=== PATIENT | female | born 1950 | race Caucasian/White ===

== ENCOUNTER 2022-09-25 15:36 | Outpatient (RCR) | payer MEDICARE, SELFPAY ==
--- NOTE | 2022-09-25 16:33 | PT.OPEX ---
PT [place] [facility] Eval PT [facility] Out[facility] Eval Start: 09/25/22 15:44 Freq: Status: Active Protocol: Document 09/25/22 15:44 DARIEL (Rec: 09/25/22 15:58 YEAGERV [id number]) E-signed By Daisha Howard Physical Therapy Outpatient Evaluation Insurance Information Recert Due Date 12/25/22 Insurance Name Medicare [employer] Medical Diagnosis M16.11 OA of R hip Z96.641 RTHA Treating Diagnosis M25.551 Pain in R hip M25.651 Stiffness in R hip Referring MD Siva Muñoz Subjective Subjective Pt presents pre-op only for RTHA on 10/17/[address] Muñoz. Pt reports that she has been in a lot of pain with functional activities such as getting in/out of the car. She states that nothing helps her pain. She does take Gabapentin at night which does help her sleep. This is her first joint replacement. Pt will be doing PT in [place] . Pt lives who can assist. Live in multi-level home, daughter and family live upstairs. No steps to enter. Has a chair lift upstairs. Pt has hx of L shoulder problems, is seeing PT currently for this issue. Pain Comments -01/01 Date of Last Physician Visit 09/28/22 Date of Next Physician Visit 10/26/22 Date of Surgery (If applicable) 10/17/22 Current Work Status Retired Occupation Retired Precautions Treatment Precautions/Contraindications PMHx: OA. Weight Bearing Status Weight Bear as Tolerated Therapy Limitations/Systems Review Not Limited Objective Range of Motion L shoulder flexion = 0-90 L ER = 22 L IR = 25 R ER = 22 R IR = 26 L hip flexion = 91 R hip flexion = 84 Strength L shoulder flexion = 4-/5 All other UE WNLs B hip flexion = 4/5 B hip abd = 4/5 B hip add = 5/5 B quads = 4/5 B hamstrings = 4+/5 B dorsiflexors = 4/5 Swelling Pt reports inc B knee swelling in the morning that reduces throughout the day. Balance & Gait No AD use. Mod trunk sway during gait. Assessment Assessment/Impression Pt is a 72yo F presenting pre- op only for RTHA on 10/17/[address] Muñoz. PMHx: OA. Pt reports that she has been experiencing R hip pain for the past 6 mon that has inc with all functional activities , especially getting in/out of the car. Pt demonstrates dec B hip strength and ROM. Pt also has dec L shoulder ROM and strength as well as pain with WB on LUE. She is currently seeing PT for her shoulder. Pt was educated on HEP, POC, post-op precautions, cryotherapy, stair negotiation, equipment needs, and pain management strategies . Pt will be receiving OP PT in [place] after sx. Primary Functional Limitations Pain with functional activities Dec B hip strength and ROM Gait deficits Plan of Care Rehabilitation Potential Good Physical Therapy Goals In one session: 1. Pt will be IND with URIEL HEP in order to perform IND at home post-op. 2. Pt will provide verbal understanding of stair negotiation with step to gait pattern in order IND enter/ exit home post-op. Coordination/Communication With Referral Source Treatment Plan/Direct Interventions Gait Training,Self-Care/Home Management,Therapeutic Exercises Patient Will Be Discharged From Therapy Completion of LTG(s),Skills Plateau,Independent w/HEP, Independently Progressing Discharge Plan Comments Pt will be d/c today as she is receiving PT post-op in [place] Evaluation Billing Untimed Code Treatment Minutes 15 PT Eval No Charge No Complexity Moderate Certification Information Initial Certification Date 09/25/22 Ending Certification Date 12/25/22 Provider Signature Shows Agreement With POC & Medical Necessity Physician Comment/Change : Physician NPI Number #
== END 2023-01-11 23:59 | disposition home or self-care (01) ==
PROVIDERS: PCP Family Medicine; Visit Provider Orthopaedic Surgery
DX: M16.11 Unilateral primary osteoarthritis, right hip (principal); Z96.641 Presence of right artificial hip joint; M25.551 Pain in right hip; M25.651 Stiffness of right hip, not elsewhere classified; Z51.89 Encounter for other specified aftercare
CPT/HCPCS: 97110; 97162; 97535

== ENCOUNTER 2022-10-15 09:04 | Outpatient (CLI) | payer MEDICARE, SELFPAY | END 2022-10-15 09:05 | disposition home or self-care (01) | PROVIDERS: PCP Family Medicine; Visit Provider Orthopaedic Surgery | DX: Z01.818 Encounter for other preprocedural examination (principal) | CPT/HCPCS: 36415; 86850; 86900; 86901 ==

== ENCOUNTER 2022-10-17 08:09 | Day surgery (SDC) | payer MEDICARE, SELFPAY ==
[2022-10-17] VITALS (27 sets, daily range): BP systolic 113–141; BP diastolic 45–88; PULSE 46–61; RESP 16–18; TEMP 35.6–36.3; O2SAT 93–100; BMI 31.6
[2022-10-17] MEDS: CELECOXIB 200 MG CAPSULE PO (08:25)
[2022-10-17] MEDS: LACTATED RINGERS 1000 ML 1,000 ML 100 ML IV ×2 (08:25→11:29)
[2022-10-17] MEDS: OXYCODONE (CR) 10 MG TAB.ER.12H PO (08:25)
[2022-10-17] MEDS: SODIUM CHLORIDE 0.9 % (FLUSH) 10 ML SYRINGE IVF (08:44)
[2022-10-17] MEDS: ACETAMINOPHEN 500 MG TABLET 1000 MG PO ×3 (08:46→23:39)
--- NOTE | 2022-10-17 10:00 | CRLHL7_ITS ---
For Patients: As a result of the Century Cures Act, medical imaging exams and procedure reports are released immediately into your electronic medical record. You may view this report before your referring provider. If you have questions, please contact your health care provider. INDICATION: Right hip arthroplasty. TECHNIQUE: Fluoroscopically guided intraoperative evaluation of the right hip. FINDINGS: 57.3 seconds fluoroscopy time utilized. Right hip arthroplasty. The components are adequately aligned. IMPRESSION: 57.3 seconds fluoroscopy time utilized intraoperatively. Dictated by Alex Delgado MD @ 10/17/2022 3:44:17 PM (Electronically Signed)
[2022-10-17] MEDS: MIDAZOLAM HCL 1 MG/ML inj IVP (10:16)
[2022-10-17] MEDS: CEFAZOLIN 2 GM INJ IVP (10:30)
--- NOTE | 2022-10-17 10:48 | SUR.PREOP ---
TIME?OUT:?1015 PT/RN/MDA?VERIFICATION?OF?SURGICAL?SITE Right Hip,?PROCEDURE nerve block,?AND?CONSENT OBTAINED?PRIOR?TO?INVASIVE?PROCEDURE.
[2022-10-17] MEDS: TRANEXAMIC ACID 100 MG/ML INJ 1000 MG IV (11:30)
--- NOTE | 2022-10-17 11:45 | P.NB_ITS ---
Nerve Block Nerve Block Time Seen by Provider: 10:20 Date Seen: 10/17/22 Type of block requested by surgeon for post-operative analgesia: GIANCARLO/LFCN Side: right Time out performed: Yes Verification of patient name: Yes Verification of date of : Yes Site marking: site marked Name of person performing procedure: [place] Continuous monitoring Was continuous monitoring of O2 sat, B/P, alarm security or surveillance monitor, recorded every 15 minutes?: Yes Procedure Checklist: sterile prep, needles and gloves Ultrasound guided. Images saved: Yes Medications given in 5ml increments after negative aspiration: Ropivicaine %: 0.5 mL: 30 Needle gauge: 20 Decadron (mg): 10 Precedex (mcg): 25 Patient tolerated procedure well: Yes Additional comments: Needle noted below psoas tendon needle noted adjacent to LFCN Block Charges Block Charge (with Pro Fee): Other Periph Nerve Block Use of Ultrasound Machine for Block: Yes- US Guidance/pain block
--- NOTE | 2022-10-17 11:46 | W.ANESCHARGE ---
Anesthesia Charges Start Date/Time Anesthesia Start Date: 10/17/22 Anesthesia Start Time: 10:25 Stop Date/Time Anesthesia Stop Date: 10/17/22 Anesthesia Stop Time: 12:56 Summary Extremes of Age - Over 70 or under 1: MDA
--- NOTE | 2022-10-17 11:56 | CRLHL7_ITS ---
For Patients: As a result of the Cures Act, medical imaging exams and procedure reports are released immediately into your electronic medical record. You may view this report before your referring provider. If you have questions, please contact your health care provider. INDICATION: Follow up right hip arthroplasty. TECHNIQUE: AP pelvis and single lateral view of the low right hip. FINDINGS: Right hip arthroplasty. The components are adequately aligned and well seated. Degenerative change of the left hip. IMPRESSION: Right hip arthroplasty. The components are adequately aligned and well seated. Dictated by Alex Delgado MD @ 10/17/2022 3:45:14 PM (Electronically Signed)
--- NOTE | 2022-10-17 11:58 | P.ORPRC_ITS ---
Procedure Note Date of procedure: 10/17/22 Procedure: PREOPERATIVE DIAGNOSIS: Right hip osteoarthritis POSTOPERATIVE DIAGNOSIS: Right hip osteoarthritis NAME OF OPERATION: Right total hip arthroplasty SURGEON: Siva Muñoz MD ALTERNATIVE ENERGY ENGINEER: Domenica Jameson PA-C, ASPEN Cid IMPLANTS: 1. [employer] [place] # 50 sector ingrowth cup 2. 32 x 50 neutral polyethylene 3. Actis # 3 standard collared ingrowth stem 4. 32+ 1.0 ceramic femoral head ANESTHESIA: General ESTIMATED BLOOD LOSS: 200 cc COMPLICATIONS: None SPECIMENS: None DRAINS: None PREOPERATIVE ANTIBIOTICS: Ancef 2 grams INDICATIONS: The patient is a 72-year-old with a longstanding history of severe, unrelenting right hip pain secondary to end-stage right hip osteoarthritis. Despite appropriate nonoperative management, including activity modification, use of an assist device, anti-inflammatories, [id number]-[id number] pain medication, physical therapy and injections, they continue to have pain and disability. Operative intervention was offered. The risks, benefits and expected outcomes were discussed in detail. These included but were not limited to: Infection, bleeding, injury to blood vessel or nerve, venous thromboembolism. All questions were answered to their satisfaction. Use of an assistant professor of music was necessary throughout the case for patient positioning and safety, soft tissue retraction and closure. PROCEDURE: The patient was placed supine on the [place] table. General anesthesia was administered. The assistant professor of music made sure the patient was properly positioned. The right hip was prepped and draped in the usual sterile fashion. The image intensifier was brought in for a perfect AP pelvis and a perfect double tear drop AP view of each hip which were used for intraoperative templating with our fluoroscopic guide. An oblique incision was made 3 cm distal and 3 cm lateral to the anterior superior iliac spine. The assistant professor of music retracted the soft tissues to protect them. Subcutaneous dissection was taken with electrocautery to the superficial fascia. The fascia was divided in line with the incision. Blunt dissection was carried medially to the tensor fascia enriqueta and sartorius interval. Deep dissection was carried with electrocautery. The circumflex vessels were cauterized and divided. The capsule was exposed and then divided in a T- fashion, tagged with #1 Ethibond sutures. Retractors were placed in the joint, held by the assistant professor of music. The corkscrew was placed in the femoral head. The neck cut was made in the subcapital region. We made a second neck cut more distal. The napkin ring of bone was removed. The femoral head was removed intact. Acetabular retractors were placed, held by the assistant professor of music. The labrum was sharply debrided. The capsule was released. The 43 mm reamer was used to the true medial wall. We then enlarged in 2 mm increments using the image intensifier for our reamer placement. We impacted the cup which had excellent purchase. We placed the hole eliminator and the polyethylene. Attention was then turned to the proximal femur. The limb was placed in 140 degrees of external rotation, maximum extension and adduction. A significant amount of time was spent releasing the capsule to allow us to deliver the femur into the wound and complete the femoral side safely. Retractors were held by the assistant professor of music throughout the femoral preparation. The boxing machine operator and canal finder were used. Broaches were used to a stable size. The calcar reamer was used. Trial components were placed. The hip was reduced and was found to be stable with appropriate soft tissue tension. Length and offset had been nicely restored using the image intensifier and our fluoroscopic guide. Trial components were removed. The stem was impacted. We placed the femoral head. Again, the hip was reduced and was found to be stable with appropriate soft tissue tension. Length and offset had been nicely restored. The assistant professor of music did a three minute dilute Betadine solution soak. The assistant professor of music irrigated the wound with 3 liters of normal saline via pulse lavage. The as sistant repaired the anterior capsule with a #1 Vicryl and our previously placed Ethibond sutures. The assistant professor of music closed the fascia over the tensor fascia enriqueta with a #1 PDO Stratafix, subcutaneous tissues with 2-0 Vicryl, skin with a running 3-0 Stratafix and glue. A dry dressing was applied by the assistant professor of music. Sponge and needle counts were correct x 2. The patient tolerated the procedure well; there were no apparent complications. They were awakened and extubated in the operating room, sent to the Post-Anesthesia Care Unit in satisfactory condition. PLAN: 1. The patient will be mobilized with physical therapy, weight-bearing as tolerates 2. Xarelto x 5 days then aspirin x 30 days will be used for DVT prophylaxis 3. The patient will be discharged once medically appropriate
--- NOTE | 2022-10-17 12:56 | W.ANESCHARGE ---
Anesthesia Charges Start Date/Time Anesthesia Start Date: 10/17/22 Anesthesia Start Time: 10:25 Stop Date/Time Anesthesia Stop Date: 10/17/22 Anesthesia Stop Time: 12:56
[2022-10-17] MEDS: fentaNYL 100 MCG/2 ML inj IVP (13:30)
[2022-10-17] MEDS: ONDANSETRON 2 MG/ML inj 4 MG IVP ×2 (14:01→19:50)
--- NOTE | 2022-10-17 14:08 | REH.PT ---
PT Eval held as pt was not appropriate for therapy this PM. Will eval tomorrow morning.
[2022-10-17] MEDS: LACTATED RINGERS 1000 ML 1,000 ML 75 ML IV (14:35)
[2022-10-17] MEDS: OXYCODONE 5 MG TABLET PO (15:50)
[2022-10-17] MEDS: CEFAZOLIN 1 GM in 0.9 % SODIUM CHLORIDE Mini-bag 100 ML IVPB (16:58)
--- NOTE | 2022-10-17 19:40 | PC.NURSE ---
Pt. up to floor at 1347, Pt. at bedside, VSS. Pt. on 2L NC at sating at 95-100%. Pt. c/o Nausea and PRN zofran PRN administered. see eMAR. Casper teds, plexi pulses and active ice to op site. Dressing to right hip is C/D/I. Pt. rated pain 5/10 and PRN oxy 2.5mg administered w/relief. Pt. up to commode and voided 200CC at 1800. IV patent and SL. Pt. tolerating reg diet.
[2022-10-17] MEDS: PROCHLORPERAZINE 10 MG TABLET PO (22:02)
[2022-10-17] MEDS: SENNOSIDES 1 TAB TABLET 2 TAB PO (23:40)
--- NOTE | 2022-10-18 00:12 | PM.IMCN1 ---
Date of Consult Patient: G[place] Patient Consult date: 10/17/22 Requesting Physician: Orthopedics Primary Care Provider: Sarina Nj, Consult Narrative Reason for consult: Postop care of HTN and chronic kidney disease Narrative: Alina Groves is a 72 year old woman who presents for an elective right total hip arthroplasty due to advanced, severe osteoarthritis. This is undertaken successfully today. No complications. Doing well. Review of Systems Status of ROS: Reports: 6 or more systems reviewed and unremarkable except as noted in History and below Narrative: Denies chest heaviness, pressure, tightness, or pain. Denies syncope or near-syncope. Denies nausea or vomiting. Denies palpitations. Denies cough, shortness of breath. Denies edema. Denies claudication. [facility] Medical History (Updated 10/18/22 @ 00:16 by Srinivasa Blackburn MD) Anemia due to chronic kidney disease ?N18.9 - Chronic kidney disease, unspecified (ICD-10) ?D63.1 - Anemia in chronic kidney disease (ICD-10) Back pain ?M54.9 - Dorsalgia, unspecified (ICD-10) Chronic kidney disease, stage 4 (severe) ?N18.4 - Chronic kidney disease, stage 4 (severe) (ICD-10) Chronic nephritic syndrome, minor glomerular abnormality (~2019) ?N03.0 - Chronic nephritic syndrome with minor glomerular abnormality (ICD-10) Essential hypertension ?I10 - Essential (primary) hypertension (ICD-10) GERD (gastroesophageal reflux disease) ?K21.9 - Gastro-esophageal reflux disease without esophagitis (ICD-10) 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 ?N02.2 - Recurrent and persistent hematuria with diffuse membranous glomerulonephritis (ICD-10) Surgical History H/O eye surgery ?Z98.890 - Other specified postprocedural states (ICD-10) Hx of tonsillectomy ?Z90.89 - Acquired absence of other organs (ICD-10) Family History Other Diabetes Prostate cancer Social History Smoking Status: Never smoker Do you use any of these nicotine containing products: None How often do you have a drink containing alcohol: never AUDIT-C Alcohol total score: 0 Non-prescribed substance use: denies use Caffeine: Yes (coffee, 2-3 cups/week) Meds Home Medications and Allergies Home Medications Medication Instructions Recorded Confirmed Type calcium carbonate 600 mg calcium 600 mg PO DAILY 08/28/22 10/17/22 History (1,500 mg) tablet (Calcium) carvedilol 6.25 mg tablet 6.25 mg PO BID 08/28/22 10/17/22 History cetirizine 10 mg tablet (Zyrtec) 10 mg PO DAILY PRN 08/28/22 10/17/22 History gabapentin 300 mg capsule 300 mg PO HS 08/28/22 10/17/22 History hydrochlorothiazide 25 mg tablet 25 mg PO DAILY 08/28/22 10/17/22 History lisinopril 20 mg tablet 20 mg PO BID 08/28/22 10/17/22 History simvastatin 20 mg tablet 20 mg PO HS 08/28/22 10/17/22 History Allergies Allergy/AdvReac Type Severity Reaction Status Date / Time No Known Drug Allergies Allergy Verified 10/17/22 08:29 Exam Narrative: Exam Narrative: Appears comfortable and in no acute distress. Alert, oriented to self, place, time, situation. Friendly, articulate, cooperative. Insightful. Mood and affect are congruent. Vision and hearing are grossly normal. Neck is supple. Midline trachea. Lungs are clear to auscultation. Heart tones with regular rhythm. Abdomen with active bowel sounds, soft, nontender. No focal motor neurologic deficits. Already moving her lower extremities. Const: Vital Signs, click to edit/add: Vital Signs - 24 hr 10/17/22 08:35 10/17/22 10:15 10/17/22 10:17 Temperature 97.4 F L Pulse Rate 61 58 L 60 Pulse Rate [Right Pulse Oximeter] Respiratory Rate 16 16 16 Blood Pressure 123/49 L 130/54 L 130/56 L Blood Pressure [Le ft Arm] Pulse Oximetry 98 98 98 Oxygen Delivery Me thod Room Air Nasal Cannula Room Air Oxygen Flow Rate 2 2 10/17/22 10:20 10/17/22 12:51 10/17/22 12:55 Temperature 96.4 F L Pulse Rate 59 L 59 L 61 Pulse Rate [Right Pulse Oximeter] Respiratory Rate 16 16 16 Blood Pressure 125/54 L 119/64 114/74 Blood Pressure [Le ft Arm] Pulse Oximetry 98 97 98 Oxygen Delivery Me thod Nasal Cannula OxyMask OxyMask Oxygen Flow Rate 2 6 6 10/17/22 13:00 10/17/22 13:05 10/17/22 13:10 Temperature 96.6 F L Pulse Rate 57 L 60 59 L Pulse Rate [Right Pulse Oximeter] Respiratory Rate 16 16 16 Blood Pressure 123/61 135/61 126/49 L Blood Pressure [Le ft Arm] Pulse Oximetry 98 97 99 Oxygen Delivery Me thod OxyMask OxyMask OxyMask Oxygen Flow Rate 6 6 6 10/17/22 13:25 10/17/22 13:15 10/17/22 13:20 Temperature 96.8 F L Pulse Rate 53 L 59 L 59 L Pulse Rate [Right Pulse Oximeter] Respiratory Rate 16 16 16 Blood Pressure 123/58 L 122/57 L 126/50 L Blood Pressure [Le ft Arm] Pulse Oximetry 94 97 94 Oxygen Delivery Me thod Nasal Cannula Nasal Cannula Nasal Cannula Oxygen Flow Rate 4 4 2 10/17/22 12:25 10/17/22 13:35 10/17/22 13:40 Temperature Pulse Rate 54 L 50 L 54 L Pulse Rate [Right Pulse Oximeter] Respiratory Rate 16 16 16 Blood Pressure 122/46 L 113/45 L 117/54 L Blood Pressure [Le ft Arm] Pulse Oximetry 96 94 97 Oxygen Delivery Me thod Nasal Cannula Nasal Cannula Nasal Cannula Oxygen Flow Rate 2 4 4 10/17/22 13:48 10/17/22 13:47 10/17/22 15:00 Temperature 96.0 F L 96.0 F L Pulse Rate 54 L Pulse Rate [Right Pulse Oximeter] 53 L 54 L Respiratory Rate 16 16 16 Blood Pressure Blood Pressure [Le ft Arm] 140/64 H 140/64 H Pulse Oximetry 100 Oxygen Delivery Me thod Nasal Cannula Nasal Cannula Oxygen Flow Rate 3 3 10/17/22 14:00 10/17/22 14:15 10/17/22 14:30 Temperature 96.0 F L 96.0 F L 96.7 F L Pulse Rate Pulse Rate [Right Pulse Oximeter] 46 L 51 L 50 L Respiratory Rate 16 16 16 Blood Pressure Blood Pressure [Le ft Arm] 134/58 L 141/62 H 134/56 L Pulse Oximetry 100 98 99 Oxygen Delivery Me thod Nasal Cannula Nasal Cannula Nasal Cannula Oxygen Flow Rate 3 2 2 10/17/22 14:45 10/17/22 15:00 10/17/22 15:30 Temperature 96.8 F L 96.8 F L 96.8 F L Pulse Rate Pulse Rate [Right Pulse Oximeter] 52 L 52 L 53 L Respiratory Rate 16 16 16 Blood Pressure Blood Pressure [Le ft Arm] 114/88 122/46 L 126/53 L Pulse Oximetry 98 99 98 Oxygen Delivery Me thod Nasal Cannula Nasal Cannula Nasal Cannula Oxygen Flow Rate 2 2 2 10/17/22 17:00 10/17/22 18:00 Temperature 96.9 F L 96.8 F L Pulse Rate Pulse Rate [Right Pulse Oximeter] 52 L 60 Respiratory Rate 16 16 Blood Pressure Blood Pressure [Le ft Arm] 125/59 L 132/58 L Pulse Oximetry 99 96 Oxygen Delivery Me thod Nasal Cannula Nasal Cannula Oxygen Flow Rate 2 2 Assessment and Plan Assessment and plan (1) Osteoarthritis of right hip: Status: Chronic (2) Status post right hip replacement: Status: Acute (3) Essential hypertension: Status: Acute (4) Chronic kidney disease, stage 4 (severe): Problem comment: Creatinine 2.06 on 10/04/2022. Creatinine 2.35 on 08/15/2022. 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 Has been off of the steroids for the last 3-4 months due to improve kidney function. Status: Acute Plan 1. Reviewed impression with patient. 2. Resume her medications. 3. Will follow patient while she is here in the hospital. 4. From a medical perspective anticipate she will likely be able to be discharged on postop day 1 as planned.
[2022-10-18] MEDS: CEFAZOLIN 1 GM in 0.9 % SODIUM CHLORIDE Mini-bag 100 ML IVPB ×2 (01:21→10:38)
[2022-10-18 04:00] VITALS: BP 114/47; PULSE 64; RESP 16; TEMP 36.4; O2SAT 95
--- NOTE | 2022-10-18 06:15 | PC.NURSE ---
[id number] Shift Summary? 262 M.M. 72 R URIEL? Pt?s pain managed well overnight. Given Tylenol (nausea related to narcotics) for pain and ice pack in place. Nausea persisted with Zofran so Compazine was ordered and given with relief. Can have it again any time. Up to BR x2. No BM overnight but passing gas. Tolerated jello and jefferson gina. On room air sating mid/low 90s. AO1 with walker to BR. Possible DC today home with . IV SLed?and 2/3 IV abx given.
[2022-10-18] MEDS: ACETAMINOPHEN 500 MG TABLET 1000 MG PO (06:36)
[2022-10-18 07:00] VITALS: BP 117/49; PULSE 67; RESP 12; TEMP 36.4; O2SAT 99
[2022-10-18 07:32] LABS: Hematocrit 27.4 % (33.0-51.0); Hemoglobin* 8.8 gm/dL (12.0-16.0); Immature Granulocytes Pct Auto 0.2 %; Lymphocytes Percent Auto 9.2 % (20-44); Mean Corpuscular HGB Conc 32 gm/dL (32-36); Mean Corpuscular Hemoglobin 29 pg (26-34); Mean Corpuscular Volume 89 fL (80-100); Monocytes Percent Auto 4.9 % (0.0-11.0); Neutrophils Percent Auto 85.7 % (42.0-72.0); Platelet Count* 281 K/uL (140-440); RDW Coefficient of Variation % 12.1 % (11.5-15.5); Red Blood Count 3.08 m/uL (4.00-5.20); White Blood Count* 13.55 K/uL (4.50-11.00)
[2022-10-18 07:35] LABS: Slide Review Reflex No
[2022-10-18 07:52] LABS: Sodium* 136 mmol/L (135-149)
[2022-10-18 07:55] LABS: Creatinine* 2.9 mg/dL (0.5-1.5); Est. Creatinine Clearance* 12.84; Estimated Glomerular Filt Rate 16 ml/min
[2022-10-18 07:56] LABS: Blood Urea Nitrogen* 56 mg/dL (7-30)
--- NOTE | 2022-10-18 08:17 | PM.ORPN ---
Subjective Subjective Time Seen by Provider: 07:10 Date Seen: 10/18/22 Principal diagnosis: Status post right hip replacement 10/17/2022 Interval history: Alina is comfortable this morning. She states she got good rest last night. Her nausea has improved. Ortho Exam Narrative Exam Narrative: Alert and oriented x3. Patient is in no acute distress. Converses without labored breathing. Hearing is grossly intact. Ambulates with a walker. Examination of the right hip shows the dressing is intact. No erythema or warmth or sign of infection. Very mild soft tissue edema about the right hip. CMS is intact right lower extremity. Quad strength 5/5. Bilateral calves are soft and nontender. Const Vital Signs, click to edit/add: Vital Signs - 24 hr 10/17/22 08:35 10/17/22 10:15 10/17/22 10:17 Temperature 97.4 F L Pulse Rate 61 58 L 60 Pulse Rate [Right Pulse Oximeter] Respiratory Rate 16 16 16 Blood Pressure 123/49 L 130/54 L 130/56 L Blood Pressure [Left Arm] Pulse Oximetry 98 98 98 Oxygen Delivery Method Room Air Nasal Cannula Room Air Oxygen Flow Rate 2 2 10/17/22 10:20 10/17/22 12:51 10/17/22 12:55 Temperature 96.4 F L Pulse Rate 59 L 59 L 61 Pulse Rate [Right Pulse Oximeter] Respiratory Rate 16 16 16 Blood Pressure 125/54 L 119/64 114/74 Blood Pressure [Left Arm] Pulse Oximetry 98 97 98 Oxygen Delivery Method Nasal Cannula OxyMask OxyMask Oxygen Flow Rate 2 6 6 10/17/22 13:00 10/17/22 13:05 10/17/22 13:10 Temperature 96.6 F L Pulse Rate 57 L 60 59 L Pulse Rate [Right Pulse Oximeter] Respiratory Rate 16 16 16 Blood Pressure 123/61 135/61 126/49 L Blood Pressure [Left Arm] Pulse Oximetry 98 97 99 Oxygen Delivery Method OxyMask OxyMask OxyMask Oxygen Flow Rate 6 6 6 10/17/22 13:25 10/17/22 13:15 10/17/22 13:20 Temperature 96.8 F L Pulse Rate 53 L 59 L 59 L Pulse Rate [Right Pulse Oximeter] Respiratory Rate 16 16 16 Blood Pressure 123/58 L 122/57 L 126/50 L Blood Pressure [Left Arm] Pulse Oximetry 94 97 94 Oxygen Delivery Method Nasal Cannula Nasal Cannula Nasal Cannula Oxygen Flow Rate 4 4 2 10/17/22 12:25 10/17/22 13:35 10/17/22 13:40 Temperature Pulse Rate 54 L 50 L 54 L Pulse Rate [Right Pulse Oximeter] Respiratory Rate 16 16 16 Blood Pressure 122/46 L 113/45 L 117/54 L Blood Pressure [Left Arm] Pulse Oximetry 96 94 97 Oxygen Delivery Method Nasal Cannula Nasal Cannula Nasal Cannula Oxygen Flow Rate 2 4 4 10/17/22 13:48 10/17/22 13:47 10/17/22 15:00 Temperature 96.0 F L 96.0 F L Pulse Rate 54 L Pulse Rate [Right Pulse Oximeter] 53 L 54 L Respiratory Rate 16 16 16 Blood Pressure Blood Pressure [Left Arm] 140/64 H 140/64 H Pulse Oximetry 100 Oxygen Delivery Method Nasal Cannula Nasal Cannula Oxygen Flow Rate 3 3 10/17/22 14:00 10/17/22 14:15 10/17/22 14:30 Temperature 96.0 F L 96.0 F L 96.7 F L Pulse Rate Pulse Rate [Right Pulse Oximeter] 46 L 51 L 50 L Respiratory Rate 16 16 16 Blood Pressure Blood Pressure [Left Arm] 134/58 L 141/62 H 134/56 L Pulse Oximetry 100 98 99 Oxygen Delivery Method Nasal Cannula Nasal Cannula Nasal Cannula Oxygen Flow Rate 3 2 2 10/17/22 14:45 10/17/22 15:00 10/17/22 15:30 Temperature 96.8 F L 96.8 F L 96.8 F L Pulse Rate Pulse Rate [Right Pulse Oximeter] 52 L 52 L 53 L Respiratory Rate 16 16 16 Blood Pressure Blood Pressure [Left Arm] 114/88 122/46 L 126/53 L Pulse Oximetry 98 99 98 Oxygen Delivery Method Nasal Cannula Nasal Cannula Nasal Cannula Oxygen Flow Rate 2 2 2 10/17/22 17:00 10/17/22 18:00 10/17/22 19:00 Temperature 96.9 F L 96.8 F L Pulse Rate Pulse Rate [Right Pulse Oximeter] 52 L 60 Respiratory Rate 16 16 18 Blood Pressure Blood Pressure [Left Arm] 125/59 L 132/58 L Pulse Oximetry 99 96 Oxygen Delivery Method Nasal Cannula Nasal Cannula Room Air Oxygen Flow Rate 2 2 10/17/22 23:00 10/17/22 23:00 10/18/22 04:00 Temperature 97.4 F L 97.6 F Pulse Rate Pulse Rate [Right Pulse Oximeter] 60 60 64 Respiratory Rate 18 16 Blood Pressure Blood Pressure [Left Arm] 124/60 114/47 L Pulse Oximetry 93 95 Oxygen Delivery Method Room Air Room Air Oxygen Flow Rate Assessment and Plan Assessment and plan (1) Status post right hip replacement: Problem details: 10/17/2022, Dr. Muñoz Status: Acute Assessment and Plan: Plan for discharge is today to home if she meets discharge criteria. Her hemoglobin is 8.8. She is asymptomatic at rest. BUN and creatinine are elevated. DVT prophylaxis includes Xarelto 10 mg daily for total of 5 days, then aspirin 81 mg twice daily for 30 days, [place] stockings x1 month may remove for 1 hr per day, frequent ambulation Remove dressing 1 week. Observe wound and phone Orthopedics with any questions or concerns Use Ice on operative hip unrestricted. Return to clinic in 1 week with PA for a wound check Return to clinic in [address] Muñoz Minimize narcotic use. Wean off and discontinue soon as possible. Activities as tolerated. No strenuous activity. Attend outpt PT (2) Essential hypertension: Status: Acute (3) Chronic kidney disease, stage 4 (severe): Problem details: Creatinine 2.06 on 10/04/2022. Creatinine 2.35 on 08/15/2022. 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 Has been off of the steroids for the last 3-4 months due to improve kidney function. Status: Acute
[2022-10-18] MEDS: lisinopriL 20 MG TABLET PO (09:30)
[2022-10-18] MEDS: RIVAROXABAN 10 MG TABLET PO (09:30)
[2022-10-18] MEDS: hydroCHLOROthiazide 25 MG TABLET PO (09:30)
[2022-10-18] MEDS: SENNOSIDES 1 TAB TABLET 2 TAB PO (09:30)
[2022-10-18] MEDS: carvediloL 6.25 MG TABLET PO (09:30)
[2022-10-18 10:36] VITALS: TEMP 37
[2022-10-18 11:00] VITALS: BP 100/69; PULSE 60; RESP 12; TEMP 36.5; O2SAT 96
--- NOTE | 2022-10-18 13:11 | PC.NURSE ---
Patient alert and oriented x 4, on RA, vss, SBA, regular diet tolerating well, no N/V, fluid intake and output WNL. PIV removed prior to d/c, d/c instructions reviewed and given to patient. Patient discharged by wheelchair with to home
== END 2022-10-18 12:30 | disposition home or self-care (01) ==
LOC: OR 08:11 → MEDSURG 08:13
PROVIDERS: PCP Family Medicine; Visit Provider Orthopaedic Surgery
PROC: (CPT 27130; principal; 2022-10-17 10:00)
DX: M16.11 Unilateral primary osteoarthritis, right hip (principal); I12.9 Hypertensive chronic kidney disease with stage 1 through stage 4 chronic kidney disease, or unspecified chronic kidney disease; N18.4 Chronic kidney disease, stage 4 (severe); K21.9 Gastro-esophageal reflux disease without esophagitis; D63.1 Anemia in chronic kidney disease; Z79.52 Long term (current) use of systemic steroids; G89.18 Other acute postprocedural pain
CPT/HCPCS: 27130; 1214; 36415; 64450; 73501; 76000; 76942; 82565; 84132; 84295; 84520; 85025; 97110; 97116; 97162; 97165; 97535; 99100; A9270; C1776; J0330; J0690; J1100; J1170; J2250; J2405; J2704; J2710; J2795; J3010; J7120

== ENCOUNTER 2023-05-01 10:23 | Outpatient (CLI) | payer MEDICARE, SELFPAY | END 2023-05-01 10:24 | disposition home or self-care (01) | LOC: LAB 10:25 | PROVIDERS: PCP Family Medicine; Visit Provider Orthopaedic Surgery | DX: Z01.818 Encounter for other preprocedural examination (principal) | CPT/HCPCS: 36415; 86850; 86900; 86901 ==

== ENCOUNTER 2023-05-03 07:15 | Day surgery (SDC) | payer MEDICARE, SELFPAY ==
[2023-05-03] VITALS (35 sets, daily range): BP systolic 109–156; BP diastolic 51–118; PULSE 50–69; RESP 8–22; TEMP 35.7–36.8; O2SAT 1–100; BMI 27.9
[2023-05-03] MEDS: OXYCODONE (CR) 10 MG TAB.ER.12H PO (07:30)
[2023-05-03] MEDS: ACETAMINOPHEN 500 MG TABLET 1000 MG PO ×3 (07:30→20:40)
[2023-05-03] MEDS: SODIUM CHLORIDE 0.9 % (FLUSH) 10 ML SYRINGE IVF (07:40)
[2023-05-03] MEDS: LACTATED RINGERS 1000 ML 1,000 ML 100 ML IV ×2 (07:40→08:43)
[2023-05-03] MEDS: MIDAZOLAM HCL 1 MG/ML inj IVP (08:00)
[2023-05-03] MEDS: fentaNYL 100 MCG/2 ML inj IVP (08:00)
--- NOTE | 2023-05-03 08:10 | SUR.PREOP ---
TIME?OUT:?0800 PT/Joel RALPH RN/Mell MCGREGOR MDA?VERIFICATION?OF?SURGICAL?SITE,?PROCEDURE,?AND?CONSENT OBTAINED?PRIOR?TO?INVASIVE?PROCEDURE.
[2023-05-03] MEDS: TRANEXAMIC ACID 100 MG/ML INJ 1000 MG IV (08:42)
[2023-05-03] MEDS: CEFAZOLIN 2 GM INJ IVP (08:42)
--- NOTE | 2023-05-03 09:00 | CRLHL7_ITS ---
For Patients: As a result of the Cures Act, medical imaging exams and procedure reports are released immediately into your electronic medical record. You may view this report before your referring provider. If you have questions, please contact your health care provider. Indication: Hip replacement surgery Technique: AP hip fluoroscopic images. Fluoroscopy time 81.3 seconds. Findings/Impression: Hardware from a left total hip arthroplasty is in satisfactory position. Dictated by Adam Hoff MD @ 05/03/2023 10:26:24 AM (Electronically Signed)
--- NOTE | 2023-05-03 09:35 | P.NB_ITS ---
Nerve Block Nerve Block Time Seen by Provider: 08:04 Date Seen: 05/03/23 Type of block requested by surgeon for post-operative analgesia: GIANCARLO/LFCN Side: left Time out performed: Yes Verification of patient name: Yes Verification of date of : Yes Site marking: site marked Name of person performing procedure: [place] Continuous monitoring Was continuous monitoring of O2 sat, B/P, awake overnight monitor, recorded every 15 minutes?: Yes Procedure Checklist: sterile prep, needles and gloves Ultrasound guided. Images saved: Yes Medications given in 5ml increments after negative aspiration: Ropivicaine %: 0.5 mL: 30 Needle gauge: 20 Decadron (mg): 10 Precedex (mcg): 25 Patient tolerated procedure well: Yes Additional comments: Needle noted below psoas tendon needle noted adjacent to LFCN Block Charges Block Charge (with Pro Fee): Other Periph Nerve Block Use of Ultrasound Machine for Block: Yes- US Guidance/pain block
--- NOTE | 2023-05-03 09:36 | W.ANESCHARGE ---
Anesthesia Charges Start Date/Time Anesthesia Start Date: 05/03/23 Anesthesia Start Time: 08:26 Stop Date/Time Anesthesia Stop Date: 05/03/23 Anesthesia Stop Time: 11:02 Summary Extremes of Age - Over 70 or under 1: MDA
--- NOTE | 2023-05-03 10:07 | CRLHL7_ITS ---
For Patients: As a result of the Cures Act, medical imaging exams and procedure reports are released immediately into your electronic medical record. You may view this report before your referring provider. If you have questions, please contact your health care provider. Indication: post op URIEL Technique: AP hip centered pelvis and lateral view left hip Findings/Impression: Hardware from a left total hip arthroplasty is in satisfactory position. Bone alignment is normal. No sign of acute fracture. Postop changes are within normal limits. Dictated by Adam Hoff MD @ 05/03/2023 12:13:25 PM (Electronically Signed)
--- NOTE | 2023-05-03 10:09 | PM.ORPRC ---
Procedure Note Date of procedure: 05/03/23 Procedure: PREOPERATIVE DIAGNOSIS: Left hip osteoarthritis POSTOPERATIVE DIAGNOSIS: Left hip osteoarthritis NAME OF OPERATION: Left total hip arthroplasty SURGEON: Siva Muñoz MD SWAGE TOOLSETTER: Domenica Jameson PA-C, ASPEN Cid IMPLANTS: 1. [employer] [place] # 50 sector ingrowth cup 2. 32 x 50 +0 neutral polyethylene 3. Actis # 3 standard collared ingrowth stem 4. 32 + 9 ceramic femoral head ANESTHESIA: General ESTIMATED BLOOD LOSS: 500 cc COMPLICATIONS: None SPECIMENS: None DRAINS: None PREOPERATIVE ANTIBIOTICS: Ancef 1 g INDICATIONS: The patient is a 73-year-old with a longstanding history of severe, unrelenting left hip pain secondary to end-stage left hip osteoarthritis. Despite appropriate nonoperative management, including activity modification, use of an assist device, anti-inflammatories, [id number] pain medication, physical therapy and injections, they continue to have pain and disability. Operative intervention was offered. The risks, benefits and expected outcomes were discussed in detail. These included but were not limited to: Infection, bleeding, injury to blood vessel or nerve, venous thromboembolism. All questions were answered to their satisfaction. Use of an speech language pathology assistant was necessary throughout the case for patient positioning and safety, soft tissue retraction and closure. PROCEDURE: The patient was placed supine on the [place] table. General anesthesia was administered. The speech language pathology assistant made sure the patient was properly positioned. The left hip was prepped and draped in the usual sterile fashion. The image intensifier was brought in for a perfect AP pelvis and a perfect double tear drop AP view of each hip which were used for intraoperative templating with our fluoroscopic guide. An oblique incision was made 3 cm distal and 3 cm lateral to the anterior superior iliac spine. The speech language pathology assistant retracted the soft tissues to protect them. Subcutaneous dissection was taken with electrocautery to the superficial fascia. The fascia was divided in line with the incision. Blunt dissection was carried medially to the tensor fascia enriqueta and sartorius interval. Deep dissection was carried with electrocautery. The circumflex vessels were cauterized and divided. The capsule was exposed and then divided in a T-fashion, tagged with #1 Ethibond sutures. Retractors were placed in the joint, held by the speech language pathology assistant. The corkscrew was placed in the femoral head. The neck cut was made in the subcapital region. We made a second neck cut more distal. The napkin ring of bone was removed. The femoral head was removed intact. Acetabular retractors were placed, held by the speech language pathology assistant. The labrum was sharply debrided. The capsule was released. The 43 mm reamer was used to the true medial wall. We then enlarged in 2 mm increments using the image intensifier for our reamer placement. We impacted the cup which had excellent purchase. We placed the hole eliminator and the polyethylene. Attention was then turned to the proximal femur. The limb was placed in 140 degrees of external rotation, maximum extension and adduction. A significant amount of time was spent releasing the capsule to allow us to deliver the femur into the wound and complete the femoral side safely. Retractors were held by the speech language pathology assistant throughout the femoral preparation. The gill box operator and canal finder were used. Broaches were used to a stable size. The calcar reamer was used. Trial components were placed. The hip was reduced and was found to be stable with appropriate soft tissue tension. Length and offset had been nicely restored using the image intensifier and our fluoroscopic guide. Trial components were removed. The stem was impacted. We placed the femoral head. Again, the hip was reduced and was found to be stable with appropriate soft tissue tension. Length and offset had been nicely restored. The speech language pathology assistant did a three minute dilute Betadine solution soak. The speech language pathology assistant irrigated the wound with 3 liters of normal saline via pulse lavage. The speech language pathology assistant repaired the anterior capsule with a #1 Vicryl and our previously placed Ethibond sutures. The speech language pathology assistant closed the fascia over the tensor fascia enriqueta with a #1 PDO Stratafix, subcutaneous tissues with 2-0 Vicryl, skin with a running 3-0 Stratafix and glue. A dry dressing was applied by the speech language pathology assistant. Sponge and needle counts were correct x 2. The patient tolerated the procedure well; there were no apparent complications. They were awakened and extubated in the operating room, sent to the Post-Anesthesia Care Unit in satisfactory condition. PLAN: 1. The patient will be mobilized with physical therapy, weight-bearing as tolerates 2. Xarelto x 5 days then aspirin x 30 days will be used for DVT prophylaxis 3. The patient will be discharged once medically appropriate
--- NOTE | 2023-05-03 11:06 | W.ANESCHARGE ---
Anesthesia Charges Start Date/Time Anesthesia Start Date: 05/03/23 Anesthesia Start Time: 08:26 Stop Date/Time Anesthesia Stop Date: 05/03/23 Anesthesia Stop Time: 11:02
[2023-05-03] MEDS: fentaNYL 100 MCG/2 ML inj 50 MCG IVP (11:24)
[2023-05-03] MEDS: HYDROmorphone 0.5 mg/0.5 ml inj IVP (11:30)
[2023-05-03] MEDS: OXYCODONE 5 MG TABLET PO ×2 (13:44→16:14)
--- NOTE | 2023-05-03 14:03 | REH.PT ---
PT Shahnaz held as pt was not appropriate for therapy this PM due to pain control issues. Will shahnaz tomorrow morning.
--- NOTE | 2023-05-03 14:47 | P.IMCN_ITS ---
Date of Consult Patient: G[place] Patient Consult date: 05/03/23 Requesting Physician: Orthopedics Primary Care Provider: Sarina Nj, Consult Narrative Narrative: Alina Groves is a 73 year old female admitted to the hospital for left total hip arthroplasty. Procedures performed by Dr. Muñoz. No complications. Estimated blood loss of 500 mL. Postoperatively patient reports doing well. She has no concerns today. No recent health problems except for persistent fatigue. She attributes this to anemia though her hemoglobin was 10.2 2 weeks ago. On April 24 she had a molar extracted from her right mandible. She did take and amoxicillin for 1 week after that and finished at 3 days ago. She is having no pain or other problems associated with that dental extraction. September 2022 she underwent right hip arthroplasty. The procedure was uncomplicated and she went home afterwards. Again had concern about anemia at that time and did receive some intravenous iron in November for her anemia. She has membranous glomerulonephritis and is followed by Dr. Judie Butler, mushroom farmer. Previously was treated with cyclosporin and prednisone. He has treatments were discontinued March of 2022 and she has been stable since then. Her baseline creatinine has been around 2.1. On April 20, 2023 her creatinine was 2.3 and her potassium was 5.2. Postoperatively she has been hypoxic. No history of respiratory disease. She reports no shortness of breath. 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 ?N02.2 - Recurrent and persistent hematuria with diffuse membranous glomerulonephritis (ICD-10) Essential hypertension ?I10 - Essential (primary) hypertension (ICD-10) Chronic kidney disease, stage 4 (severe) ?N18.4 - Chronic kidney disease, stage 4 (severe) (ICD-10) Chronic nephritic syndrome, minor glomerular abnormality (~2019) ?N03.0 - Chronic nephritic syndrome with minor glomerular abnormality (ICD- 10) Back pain ?M54.9 - Dorsalgia, unspecified (ICD-10) GERD (gastroesophageal reflux disease) ?K21.9 - Gastro-esophageal reflux disease without esophagitis (ICD-10) Surgical History (Updated 05/03/23 @ 15:00 by Kevyn Dwyer MD) History of total left hip arthroplasty ?Z96.642 - Presence of left artificial hip joint (ICD-10) Status post right hip replacement (10/17/22) ?Z96.641 - Presence of right artificial hip joint (ICD-10) Hx of tonsillectomy ?Z90.89 - Acquired absence of other organs (ICD-10) H/O eye surgery ?Z98.890 - Other specified postprocedural states (ICD-10) Family History Other Diabetes Prostate cancer Social History (Updated 05/03/23 @ 15:02 by Kevyn Dwyer MD) Narrative: Patient was living in [place] and this summer moved to [place]. She lives in apartment there. She has elevators. She lives alone. Her son is going to come and stay with her for a week after surgery. She has a daughter who lives nearby. Her son, Rylan Mcknight, is healthcare power of claim attorney. Code status is full. She does not smoke or drink alcohol. Smoking Status: Current every day smoker Do you use any of these nicotine containing products: None How often do you have a drink containing alcohol: never AUDIT-C Alcohol total score: 0 Non-prescribed substance use: denies use Caffeine: No Meds Home Medications and Allergies Home Medications Medication Instructions Recorded Confirmed Type calcium carbonate 600 mg calcium 600 mg PO DAILY 08/28/22 05/03/23 History (1,500 mg) tablet (Calcium) carvedilol 6.25 mg tablet 6.25 mg PO BID 08/28/22 05/03/23 History cetirizine 10 mg tablet (Zyrtec) 10 mg PO DAILY PRN 08/28/22 05/03/23 History gabapentin 300 mg capsule 300 mg PO HS 08/28/22 05/03/23 History hydrochlorothiazide 25 mg tablet 25 mg PO DAILY 08/28/22 05/03/23 History lisinopril 20 mg tablet 20 mg PO BID 08/28/22 05/03/23 History simvastatin 20 mg tablet 20 mg PO HS 08/28/22 05/03/23 History famotidine 20 mg tablet (Acid 20 mg PO BID PRN 05/03/23 05/03/23 History Controller) Allergies Allergy/AdvReac Type Severity Reaction Status Date / Time No Known Drug Allergies Allergy Verified 05/03/23 07:28 Exam Narrative: Exam Narrative: She is alert and appears in no distress. She gives her own history. Eyes normal. Oropharynx normal. The site of her dental extraction without inflammation. Neck is supple without mass or adenopathy. Respirations are clear to auscultation. Cardiovascular: S1, S2, regular bradycardia. Abdomen: Bowel sounds active. Abdomen is soft without tenderness or mass. Left hip is without obvious redness or swelling. Distally she has intact pulses and sensation. No edema. Const: Vital Signs, click to edit/add: Vital Signs - 24 hr 05/03/23 07:50 05/03/23 08:00 05/03/23 08:08 Temperature 98.1 F Pulse Rate 67 60 61 Pulse Rate [Pulse Oximeter] Respiratory Rate 16 16 14 Blood Pressure 139/54 L 156/61 H 121/53 L Blood Pressure [Le ft Arm] Pulse Oximetry 95 100 94 Oxygen Delivery Me thod Room Air Nasal Cannula Nasal Cannula Oxygen Flow Rate 2 2 05/03/23 11:00 05/03/23 11:05 05/03/23 11:10 Temperature 97 F L Pulse Rate 58 L 52 L 52 L Pulse Rate [Pulse Oximeter] Respiratory Rate 12 16 20 Blood Pressure 115/52 L 131/64 141/63 H Blood Pressure [Le ft Arm] Pulse Oximetry 97 100 100 Oxygen Delivery Me thod Non Rebreather Mas k Oxygen Flow Rate 10 6 05/03/23 11:15 05/03/23 11:20 05/03/23 11:25 Temperature Pulse Rate 53 L 51 L 52 L Pulse Rate [Pulse Oximeter] Respiratory Rate 12 14 14 Blood Pressure 137/58 L 135/62 129/55 L Blood Pressure [Le ft Arm] Pulse Oximetry 95 95 95 Oxygen Delivery Me thod Nasal Cannula Oxygen Flow Rate 2 05/03/23 11:30 05/03/23 11:35 05/03/23 11:40 Temperature Pulse Rate 51 L 52 L 51 L Pulse Rate [Pulse Oximeter] Respiratory Rate 8 L 9 L 14 Blood Pressure 125/62 109/51 L 114/62 Blood Pressure [Le ft Arm] Pulse Oximetry 90 98 98 Oxygen Delivery Me thod Non Rebreather Mas k Oxygen Flow Rate 15 10 05/03/23 11:45 05/03/23 11:50 05/03/23 11:55 Temperature 96.2 F L Pulse Rate 50 L 50 L 50 L Pulse Rate [Pulse Oximeter] Respiratory Rate 22 12 12 Blood Pressure 124/60 133/61 132/66 Blood Pressure [Le ft Arm] Pulse Oximetry 94 95 98 Oxygen Delivery Me thod Nasal Cannula Oxygen Flow Rate 4 05/03/23 12:00 05/03/23 12:05 05/03/23 12:10 Temperature Pulse Rate 50 L 51 L 51 L Pulse Rate [Pulse Oximeter] Respiratory Rate 17 16 16 Blood Pressure 139/64 133/62 129/59 L Blood Pressure [Le ft Arm] Pulse Oximetry 98 98 98 Oxygen Delivery Me thod Oxygen Flow Rate 2 05/03/23 12:15 05/03/23 12:30 05/03/23 12:45 Temperature 97.4 F L 97.2 F L 97.2 F L Pulse Rate 51 L 50 L Pulse Rate [Pulse Oximeter] 51 L Respiratory Rate 18 15 15 Blood Pressure 134/61 Blood Pressure [Le ft Arm] 128/66 136/60 Pulse Oximetry 96 94 Oxygen Delivery Me thod Nasal Cannula Room Air Nasal Cannula Oxygen Flow Rate 2 2 05/03/23 12:45 05/03/23 13:00 05/03/23 13:15 Temperature 97.2 F L 97.2 F L 97.2 F L Pulse Rate Pulse Rate [Pulse Oximeter] 50 L 55 L 52 L Respiratory Rate 15 15 15 Blood Pressure Blood Pressure [Le ft Arm] 136/60 132/57 L 142/67 H Pulse Oximetry 94 94 94 Oxygen Delivery Me thod Nasal Cannula Nasal Cannula Nasal Cannula Oxygen Flow Rate 2 2 2 05/03/23 13:30 05/03/23 14:00 Temperature 97.2 F L 98.0 F Pulse Rate Pulse Rate [Pulse Oximeter] 53 L 57 L Respiratory Rate 16 15 Blood Pressure Blood Pressure [Le ft Arm] 136/62 148/65 H Pulse Oximetry 97 94 Oxygen Delivery Me thod Nasal Cannula Room Air Oxygen Flow Rate 1 0 Assessment and Plan Assessment and plan (1) Postoperative hypoxia: Problem comment: Likely due to sedation. Will continue to monitor. Further investigation if not weaning off oxygen by tomorrow. Status: Acute (2) Essential hypertension: Problem comment: Hold lisinopril and hydrochlorothiazide. Continue carvedilol. Probably resume lisinopril and hydrochlorothiazide at discharge. Check creatinine and potassium in the morning. If hyperkalemic consider reducing lisinopril dose Status: Acute (3) Chronic kidney disease, stage 4 (severe): Problem comment: Creatinine 2.06 on 10/04/2022. Creatinine 2.35 on 08/15/2022. Creatinine 2.3 on 04/20/2023. Potassium at that time was 5.2. Recheck in the morning. Outpatient clinic follow-up in 1-2 weeks to recheck creatinine and potassium as well Status: Acute (4) History of total left hip arthroplasty: Problem comment: 05/03/[address] Muñoz. No complications. Status: Acute Plan Monitor blood pressure, hypoxia, renal function. Anticipate routine physical therapy and pain management. Avoid NSAIDs. Probable discharge tomorrow for outpatient follow-up of chronic kidney disease.
[2023-05-03] MEDS: CEFAZOLIN 1 GM in 0.9 % SODIUM CHLORIDE Mini-bag 100 ML IVPB ×2 (14:53→23:22)
--- NOTE | 2023-05-03 15:37 | PC.NURSE ---
End of shift nursing note, care provided [id number]: Pt admit from PACU at 1230, pt initially very drowsy, responsive to name but quickly resumed sleep. Then pt awoke and c/o of severe pain to L hip, more alert so PRN Oxycodone 2.5mg and scheduled Tylenol 1000mg admin, Tylenol crushed for comfort of pt's throat being scratchy. Pt initial c/o of 9/10 pain had improved to 4/10 pain. Vitals stable, requiring 2L via NC, trialed RA and pt desat to mid 80% on RA. Ice pack to L hip. CMS intact. TEDs bilateral on, plexiboots on. Pt tolerating PO intake of fluids, jello and ice chips. Denies nausea. Pt due to void by 1830, pt aware. Dressing CDI. Son 'Ernst' at bedside. Pt has call light within reach and able to use appropriately.
[2023-05-03] MEDS: BENZOCAINE/MENTHOL 1 EACH LOZENGE MUCOUS MEM (16:15)
[2023-05-03] MEDS: ONDANSETRON 2 MG/ML inj 4 MG IVP (17:30)
[2023-05-03] MEDS: LACTATED RINGERS 1000 ML 1,000 ML 75 ML IV (17:59)
--- NOTE | 2023-05-03 19:32 | PC.NURSE ---
End of shift 1500- 1900: Patient is alert and orientated... reported mild to moderate pain in L hip.. Dressing is CDI. PRN oxy given for pain this evening... reports adequate relief with administration at 07/04. Patient has LR running @ 75. Up to the BR for the first time w/ Ax2 walker and GB.. slow and deliberate but the patient tolerated it well with no issues. Became nauseous when sitting on the toilet PRN IV zofran. This helped, but when the patient got back to bed she initially... but @ 1845 the threw up pears and 50cc of jello from earlier. She reported feeling better after throwing up. Let the on coming nurse know to look into other nausea options... per Ortho if needed. 1 urine occurrence of 400cc. Ice pack to L HIP. Call light within reach. Carrie HAIDER RN
[2023-05-03] MEDS: GABAPENTIN 300 MG CAPSULE PO (20:41)
[2023-05-03] MEDS: carvediloL 6.25 MG TABLET PO (20:41)
[2023-05-03] MEDS: SENNOSIDES 1 TAB TABLET 2 TAB PO (20:41)
[2023-05-03] MEDS: SIMVASTATIN 20 MG TABLET PO (20:41)
[2023-05-04 03:00] VITALS: BP 118/59; PULSE 58; RESP 16; TEMP 36.1; O2SAT 94
--- NOTE | 2023-05-04 06:15 | PC.NURSE ---
End of Shift: Pt pleasant and cooperative throughout shift, remained AO. Reported pain between 0-2/10. Voiding well, continent. Ambulating with walker, gb, SBA. RA. Sats between 93-95%. Nausea resolved, requested egg whites and toast for breakfast. Saline locked.
[2023-05-04 06:30] LABS: Basophils Percent Auto 0.1 % (0.0-3.0); Hematocrit 23.9 % (33.0-51.0); Immature Granulocytes Pct Auto 0.4 %; Lymphocytes Percent Auto 11.3 % (20-44); Mean Corpuscular HGB Conc 33 gm/dL (32-36); Mean Corpuscular Hemoglobin 31 pg (26-34); Mean Corpuscular Volume 94 fL (80-100); Monocytes Percent Auto 5.4 % (0.0-11.0); Neutrophils Percent Auto 82.8 % (42.0-72.0); Platelet Count* 223 K/uL (140-440); RDW Coefficient of Variation % 12.1 % (11.5-15.5); Red Blood Count 2.54 m/uL (4.00-5.20); White Blood Count* 11.64 K/uL (4.50-11.00)
[2023-05-04 06:34] LABS: Hemoglobin* 7.8 gm/dL (12.0-16.0); Slide Review Reflex No
[2023-05-04] MEDS: OXYCODONE 5 MG TABLET PO ×2 (06:52→11:55)
[2023-05-04 07:00] VITALS: BP 131/60; PULSE 63; RESP 18; TEMP 36.5; O2SAT 94
[2023-05-04 07:08] LABS: Potassium* 4.9 mmol/L (3.6-5.1); Sodium* 134 mmol/L (135-149)
[2023-05-04 07:11] LABS: Blood Urea Nitrogen* 40 mg/dL (7-30); Est. Creatinine Clearance* 18.34; Estimated Glomerular Filt Rate 26 ml/min
--- NOTE | 2023-05-04 07:30 | PM.ORPN ---
Subjective Subjective Time Seen by Provider: 07:30 Date Seen: 05/04/23 Principal diagnosis: Status post left hip replaced Interval history: Celestina is comfortable at rest this morning. She has ambulated to the restroom without dizziness or lightheadedness. She plans to discharge to home with family members stain with her in her home. Ortho Exam Narrative Exam Narrative: Alert and oriented x3. Patient is in no acute distress. Converses without labored breathing. Hearing is grossly intact. Ambulates with a walker. Examination the left hip shows the dressing is intact. There is mild ecchymosis. Minimal soft tissue edema about the hip and thigh. CMS is intact left lower extremity. Quad strength 5/5. Bilateral calves are soft and nontender. Const Vital Signs, click to edit/add: Vital Signs - 24 hr 05/03/23 07:50 05/03/23 08:00 05/03/23 08:08 Temperature 98.1 F Pulse Rate 67 60 61 Pulse Rate [Pulse Oximeter] Respiratory Rate 16 16 14 Blood Pressure 139/54 L 156/61 H 121/53 L Blood Pressure [Left Arm] Pulse Oximetry 95 100 94 Oxygen Delivery Method Room Air Nasal Cannula Nasal Cannula Oxygen Flow Rate 2 2 05/03/23 11:00 05/03/23 11:05 05/03/23 11:10 Temperature 97 F L Pulse Rate 58 L 52 L 52 L Pulse Rate [Pulse Oximeter] Respiratory Rate 12 16 20 Blood Pressure 115/52 L 131/64 141/63 H Blood Pressure [Left Arm] Pulse Oximetry 97 100 100 Oxygen Delivery Method Non Rebreather Mask Oxygen Flow Rate 10 6 05/03/23 11:15 05/03/23 11:20 05/03/23 11:25 Temperature Pulse Rate 53 L 51 L 52 L Pulse Rate [Pulse Oximeter] Respiratory Rate 12 14 14 Blood Pressure 137/58 L 135/62 129/55 L Blood Pressure [Left Arm] Pulse Oximetry 95 95 95 Oxygen Delivery Method Nasal Cannula Oxygen Flow Rate 2 05/03/23 11:30 05/03/23 11:35 05/03/23 11:40 Temperature Pulse Rate 51 L 52 L 51 L Pulse Rate [Pulse Oximeter] Respiratory Rate 8 L 9 L 14 Blood Pressure 125/62 109/51 L 114/62 Blood Pressure [Left Arm] Pulse Oximetry 90 98 98 Oxygen Delivery Method Non Rebreather Mask Oxygen Flow Rate 15 10 05/03/23 11:45 05/03/23 11:50 05/03/23 11:55 Temperature 96.2 F L Pulse Rate 50 L 50 L 50 L Pulse Rate [Pulse Oximeter] Respiratory Rate 22 12 12 Blood Pressure 124/60 133/61 132/66 Blood Pressure [Left Arm] Pulse Oximetry 94 95 98 Oxygen Delivery Method Nasal Cannula Oxygen Flow Rate 4 05/03/23 12:00 05/03/23 12:05 05/03/23 12:10 Temperature Pulse Rate 50 L 51 L 51 L Pulse Rate [Pulse Oximeter] Respiratory Rate 17 16 16 Blood Pressure 139/64 133/62 129/59 L Blood Pressure [Left Arm] Pulse Oximetry 98 98 98 Oxygen Delivery Method Oxygen Flow Rate 2 05/03/23 12:15 05/03/23 12:30 05/03/23 12:45 Temperature 97.4 F L 97.2 F L 97.2 F L Pulse Rate 51 L 50 L Pulse Rate [Pulse Oximeter] 51 L Respiratory Rate 18 15 15 Blood Pressure 134/61 Blood Pressure [Left Arm] 128/66 136/60 Pulse Oximetry 96 94 Oxygen Delivery Method Nasal Cannula Room Air Nasal Cannula Oxygen Flow Rate 2 2 05/03/23 12:45 05/03/23 13:00 05/03/23 13:15 Temperature 97.2 F L 97.2 F L 97.2 F L Pulse Rate Pulse Rate [Pulse Oximeter] 50 L 55 L 52 L Respiratory Rate 15 15 15 Blood Pressure Blood Pressure [Left Arm] 136/60 132/57 L 142/67 H Pulse Oximetry 94 94 94 Oxygen Delivery Method Nasal Cannula Nasal Cannula Nasal Cannula Oxygen Flow Rate 2 2 2 05/03/23 13:30 05/03/23 14:00 05/03/23 14:15 Temperature 97.2 F L 98.0 F Pulse Rate Pulse Rate [Pulse Oximeter] 53 L 57 L Respiratory Rate 16 15 16 Blood Pressure Blood Pressure [Left Arm] 136/62 148/65 H Pulse Oximetry 97 94 86 L Oxygen Delivery Method Nasal Cannula Room Air Room Air Oxygen Flow Rate 1 0 0 05/03/23 14:30 05/03/23 15:00 05/03/23 15:30 Temperature 98.3 F 97.2 F L Pulse Rate Pulse Rate [Pulse Oximeter] 69 58 L Respiratory Rate 14 16 Blood Pressure Blood Pressure [Left Arm] 126/57 L 156/76 H Pulse Oximetry 94 97 1 L Oxygen Delivery Method Nasal Cannula Nasal Cannula Nasal Cannula Oxygen Flow Rate 2 2 05/03/23 15:49 05/03/23 16:00 05/03/23 17:00 Temperature 97.9 F 97.4 F L 97.3 F L Pulse Rate Pulse Rate [Pulse Oximeter] 57 L 58 L 60 Respiratory Rate 16 16 18 Blood Pressure Blood Pressure [Left Arm] 140/69 H 129/62 145/60 H Pulse Oximetry 97 96 95 Oxygen Delivery Method Nasal Cannula Nasal Cannula Room Air Oxygen Flow Rate 1 1 05/03/23 18:00 05/03/23 20:00 05/03/23 23:00 Temperature 97.2 F L 97.6 F Pulse Rate Pulse Rate [Pulse Oximeter] 59 L 58 L 64 Respiratory Rate 16 16 16 Blood Pressure Blood Pressure [Left Arm] 147/58 H 136/118 H Pulse Oximetry 94 95 Oxygen Delivery Method Room Air Room Air Oxygen Flow Rate 05/03/23 23:00 05/04/23 03:00 Temperature 97.0 F L Pulse Rate Pulse Rate [Pulse Oximeter] 58 L Respiratory Rate 16 16 Blood Pressure Blood Pressure [Left Arm] 118/59 L Pulse Oximetry 94 94 Oxygen Delivery Method Room Air Room Air Oxygen Flow Rate Assessment and Plan Assessment and plan (1) History of total left hip arthroplasty: Problem details: 05/03/[address] Muñoz. No complications. Status: Acute Assessment and Plan: Plan for discharge is today to home if they meet discharge criteria. DVT prophylaxis includes Xarelto 10 mg daily for total of 5 days, then aspirin 81 mg twice daily for 30 days, [place] stockings x1 month may remove for 1 hr per day, frequent ambulation. Hospitalist is in agreement of DVT prophylaxis given her kidney disease. She had this same regimen after her Right hip replacement in September and had no issues with clotting. HGB is 7.8 today. She may be getting iron transfusion prior to DC. Iron labs will be drawn this am per Dr Cisneros. She had iron transfusion after her rt hip replacement in September due to low Hgb. She recalls feeling fatigued after her Rt hip replacement and surgical blood loss. Remove dressing 1 week. Observe wound and phone Orthopedics with any questions or concerns Use Ice on operative hip unrestricted. Return to clinic in 1 week with PA for a wound check Return to clinic in 6 weeks with surgeon Minimize narcotic use. Wean off and discontinue soon as possible. Activities as tolerated. No strenuous activity. Attend outpt PT
[2023-05-04 07:53] LABS: Iron* 38 ug/dL (37-170)
[2023-05-04 08:02] LABS: Percent Iron Saturation 16 % (20-50); Total Iron Binding Capacity 233 ug/dL (265-497)
[2023-05-04] MEDS: SENNOSIDES 1 TAB TABLET 2 TAB PO (08:23)
[2023-05-04] MEDS: CALCIUM CARBONATE 500 MG TABLET PO (08:24)
[2023-05-04] MEDS: ACETAMINOPHEN 500 MG TABLET 1000 MG PO (08:24)
[2023-05-04] MEDS: RIVAROXABAN 10 MG TABLET PO (08:24)
[2023-05-04] MEDS: carvediloL 6.25 MG TABLET PO (08:24)
[2023-05-04 11:00] VITALS: BP 176/84; PULSE 61; RESP 18; TEMP 37.1; O2SAT 94
--- NOTE | 2023-05-04 12:48 | PM.IMPN1 ---
Progress Note: A&P Assessment and plan (1) History of total left hip arthroplasty: Problem details: 05/03/[address] Muñoz. No complications. 05/04: POD#1 s/p L URIEL. History of profound weakness with anemia following previous surgery outpatient requiring iron infusion 2 months postoperative. Intraoperative blood loss estimated to be 500 mL. Hemoglobin this morning 7.8. Asymptomatic other than short episode dizziness with OT. Has remained medically stable. Iron 38, TIBC 233,% saturation 16, ferritin 828. Given chronic kidney disease (Oil Well Cable Tool Operator warned her previously about potential effects of iron infusions) and the patient is doing well postoperatively currently, recommend close follow-up with PCP next week with recheck hemoglobin, possibly iron studies, to further assess need for possible iron infusion made. Status: Acute (2) Postoperative hypoxia: Problem details: Resolved. Likely due to sedation. Will continue to monitor. Further investigation if not weaning off oxygen by tomorrow. Status: Acute (3) Chronic kidney disease, stage 4 (severe): Problem details: Creatinine 2.06 on 10/04/2022. Creatinine 2.35 on 08/15/2022. Creatinine 2.3 on 04/20/2023. Potassium at that time was 5.2. Recheck in the morning. Outpatient clinic follow-up in 1-2 weeks to recheck creatinine and potassium as well -creatinine 2.0, potassium 4.9 (05/04) Status: Acute (4) Essential hypertension: Problem details: Hold lisinopril and hydrochlorothiazide. Continue carvedilol. Resume lisinopril and hydrochlorothiazide at discharge. Status: Acute Plan Discharge to home today with family per orthopedic surgery recommendations. Time Spent With Patient Total time spent: Total time spent caring for the patient today was 45 minutes. This includes time spent for the visit reviewing the chart, time spent during the visit, time spent after the visit and documentation and planning in coordination of care. Subjective Date Seen: 05/04/23 Interval history: Patient is seen with son at bedside in follow-up POD#1 s/p left URIEL. Reports feeling good this morning. Pain is appropriately managed. Has been ambulatory with physical therapy without difficulty, no report of dizziness, lightheadedness, weakness. Able to complete OT tasks with only mild dizziness, remaining vital is stable. Exam Narrative: Exam Narrative: PHYSICAL EXAM General: Pleasant, conversant, NAD HEENT: Normocephalic, atraumatic, sclera white, EOMI, oral mucosa moist Cardiovascular: RRR Pulmonary: No dyspnea Neurological: Alert, answering questions appropriately Extremities: No gross joint deformity or swelling. Skin: Exposed skin warm, dry. Const: Vital Signs, click to edit/add: Vital Signs - 24 hr 05/03/23 13:00 05/03/23 13:15 05/03/23 13:30 Temperature 97.2 F L 97.2 F L 97.2 F L Pulse Rate [Pulse Oximeter] 55 L 52 L 53 L Respiratory Rate 15 15 16 Blood Pressure [Le ft Arm] 132/57 L 142/67 H 136/62 Pulse Oximetry 94 94 97 Oxygen Delivery Me thod Nasal Cannula Nasal Cannula Nasal Cannula Oxygen Flow Rate 2 2 1 05/03/23 14:00 05/03/23 14:15 05/03/23 14:30 Temperature 98.0 F 98.3 F Pulse Rate [Pulse Oximeter] 57 L 69 Respiratory Rate 15 16 14 Blood Pressure [Le ft Arm] 148/65 H 126/57 L Pulse Oximetry 94 86 L 94 Oxygen Delivery Me thod Room Air Room Air Nasal Cannula Oxygen Flow Rate 0 0 2 05/03/23 15:00 05/03/23 15:30 05/03/23 15:49 Temperature 97.2 F L 97.9 F Pulse Rate [Pulse Oximeter] 58 L 57 L Respiratory Rate 16 16 Blood Pressure [Le ft Arm] 156/76 H 140/69 H Pulse Oximetry 97 1 L 97 Oxygen Delivery Me thod Nasal Cannula Nasal Cannula Nasal Cannula Oxygen Flow Rate 2 1 05/03/23 16:00 05/03/23 17:00 05/03/23 18:00 Temperature 97.4 F L 97.3 F L 97.2 F L Pulse Rate [Pulse Oximeter] 58 L 60 59 L Respiratory Rate 16 18 16 Blood Pressure [Le ft Arm] 129/62 145/60 H 147/58 H Pulse Oximetry 96 95 94 Oxygen Delivery Me thod Nasal Cannula Room Air Room Air Oxygen Flow Rate 1 05/03/23 20:00 05/03/23 23:00 05/03/23 23:00 Temperature 97.6 F Pulse Rate [Pulse Oximeter] 58 L 64 Respiratory Rate 16 16 16 Blood Pressure [Le ft Arm] 136/118 H Pulse Oximetry 95 94 Oxygen Delivery Me thod Room Air Room Air Oxygen Flow Rate 05/04/23 03:00 Temperature 97.0 F L Pulse Rate [Pulse Oximeter] 58 L Respiratory Rate 16 Blood Pressure [Le ft Arm] 118/59 L Pulse Oximetry 94 Oxygen Delivery Me thod Room Air Oxygen Flow Rate Labs Labs: Laboratory Results - last 24 hr 05/04/23 05/04/23 05:57 07:25 WBC 11.64 H RBC 2.54 L Hgb 7.8 L* Hct 23.9 L MCV 94 MCH 31 MCHC 33 RDW Coeff of Roya 12.1 Plt Count 223 Neut % (Auto) 82.8 H Lymph % (Auto) 11.3 L Phillips % (Auto) 5.4 Eos % (Auto) 0.0 Baso % (Auto) 0.1 Neut # (Auto) 9.60 H Lymph # (Auto) 1.30 Phillips # (Auto) 0.60 Eos # (Auto) 0.00 Baso # (Auto) 0.00 Abs Immat Gran (auto) 0.00 Imm/Tot Granulo (auto) 0.4 Sodium 134 L Potassium 4.9 BUN 40 H Creatinine 2.0 H Estimated Creat Clear 18.34 Estimated GFR 26 Iron 38 TIBC 233 L % Saturation 16 L Ferritin 828.0 H Lab Acknowledgement Test Added
--- NOTE | 2023-05-04 14:17 | PC.SOCIAL ---
Per therapy, pt is ambulating well. Pt has assistance from family at home for recovery. No identified social work needs.
--- NOTE | 2023-05-04 17:57 | PC.NURSE ---
Discharge- Pt alert, oriented, and cooperative during shift. Pt up with PT/OT using walker and gait belt to bathroom and in halls. Pt reported pain as 2/10 prior to therapy that increased to 4/10 with activity. Pain addressed with interventions in MAR and ice pack. Pt verbalized improvement of pain. Pt continent of bowel and bladder, tolerating RA, and regular diet. Family at bedside. Discharge instructions reviewed, signed, and understanding verbalized by pt and family. Discharged to home with family member at approximately 13:45,
== END 2023-05-04 13:45 | disposition home or self-care (01) ==
LOC: OR 07:16 → MEDSURG 07:18
PROVIDERS: Family Medicine; PCP Family Medicine; Visit Provider Orthopaedic Surgery
PROC: (CPT 27130; principal; 2023-05-03 09:00)
DX: M16.12 Unilateral primary osteoarthritis, left hip (principal); G89.18 Other acute postprocedural pain; R53.83 Other fatigue; I12.9 Hypertensive chronic kidney disease with stage 1 through stage 4 chronic kidney disease, or unspecified chronic kidney disease; N18.4 Chronic kidney disease, stage 4 (severe); D63.1 Anemia in chronic kidney disease; R09.02 Hypoxemia; R42 Dizziness and giddiness; D64.89 Other specified anemias
CPT/HCPCS: 27130; 01214; 36415; 64450; 73501; 76000; 76942; 82565; 82728; 83540; 83550; 84132; 84295; 84520; 85025; 97110; 97116; 97161; 97165; 97530; 97535; 99100; A9270; C1776; J0330; J0690; J1100; J1170; J1200; J2250; J2405; J2704; J2795; J3010; J3475; J3490; J7120

== ENCOUNTER 2024-06-05 14:26 | Outpatient (RCR) | payer MEDICARE, SELFPAY | END 2024-10-03 23:59 | disposition home or self-care (01) | PROVIDERS: PCP Family Medicine; Visit Provider Orthopaedic Surgery | DX: M19.011 Primary osteoarthritis, right shoulder (principal); Z96.611 Presence of right artificial shoulder joint; Z51.89 Encounter for other specified aftercare | CPT/HCPCS: 97110; 97165; 97535; X5282 ==

== ENCOUNTER 2024-06-24 07:58 | Day surgery (SDC) | payer MEDICARE, SELFPAY ==
[2024-06-24] VITALS (23 sets, daily range): BP systolic 111–201; BP diastolic 49–85; PULSE 55–75; RESP 14–20; TEMP 36.1–36.6; O2SAT 90–97; BMI 29.5
[2024-06-24] MEDS: SCOPOLAMINE 1 MG/3 DAY PATCH 1 PATCH TRANSDERMA (08:00)
[2024-06-24] MEDS: ONDANSETRON 2 MG/ML inj 4 MG IVP ×2 (09:09→20:30)
[2024-06-24] MEDS: LACTATED RINGERS 1000 ML 1,000 ML 100 ML IV (09:09)
[2024-06-24] MEDS: SODIUM CHLORIDE 0.9 % (FLUSH) 10 ML SYRINGE IVF (09:09)
[2024-06-24] MEDS: ACETAMINOPHEN 500 MG TABLET 1000 MG PO ×3 (09:30→20:30)
[2024-06-24] MEDS: MIDAZOLAM HCL 1 MG/ML inj IVP (10:00)
[2024-06-24] MEDS: fentaNYL 100 MCG/2 ML inj IVP (10:00)
--- NOTE | 2024-06-24 10:04 | SUR.PREOP ---
TIME?OUT:?954, right shoulder PT/RN/MDA?VERIFICATION?OF?SURGICAL?SITE,?PROCEDURE,?AND?CONSENT OBTAINED?PRIOR?TO?INVASIVE?PROCEDURE.
--- NOTE | 2024-06-24 10:05 | W.PM.NB ---
Nerve Block Nerve Block Time Seen by Provider: 09:58 Date Seen: 06/24/24 Type of block requested by surgeon for post-operative analgesia: supraclavicular Side: right Time out performed: Yes Verification of patient name: Yes Verification of date of : Yes Site marking: site marked Name of person performing procedure: Ryan Continuous monitoring Was continuous monitoring of O2 sat, B/P, monitoring engineer, recorded every 15 minutes?: Yes Procedure Checklist: sterile prep Ultrasound guided. Images saved: Yes Medications given in 5ml increments after negative aspiration: Ropivicaine %: 0.5 mL: 20 Needle gauge: 22 Decadron (mg): 10 Precedex (mcg): 10 Patient tolerated procedure well: Yes Block Charges Block Charge (with Pro Fee): Brachial Plexus Use of Ultrasound Machine for Block: Yes- US Guidance/pain block
[2024-06-24] MEDS: CEFAZOLIN 2 GM INJ IVP (10:30)
[2024-06-24] MEDS: TRANEXAMIC ACID 100 MG/ML INJ 1000 MG IV (10:35)
--- NOTE | 2024-06-24 12:12 | CRLHL7_ITS ---
For Patients: As a result of the Cures Act, medical imaging exams and procedure reports are released immediately into your electronic medical record. You may view this report before your referring provider. If you have questions, please contact your health care provider. Indication: Postop RSA Technique: Two views right shoulder Findings/Impression: Hardware from a right reverse total shoulder arthroplasty is in satisfactory position. Bone alignment is normal. No sign of acute fracture. Postop changes are within normal limits. Dictated by Adam Hoff MD @ 06/24/2024 1:19:21 PM (Electronically Signed)
--- NOTE | 2024-06-24 12:15 | PM.ORPRC ---
Procedure Note Date of procedure: 06/24/24 Procedure: PREOPERATIVE DIAGNOSIS: Right shoulder end-stage glenohumeral joint osteoarthritis POSTOPERATIVE DIAGNOSIS: Right shoulder end-stage glenohumeral joint osteoarthritis NAME OF OPERATION: Right upper extremity reverse shoulder arthroplasty, biceps tenodesis SURGEON: Siva Muñoz MD BICYCLE RENTAL CLERK: Jamila Jameson PA-C, ASPEN Cid ANESTHESIA: General endotracheal ESTIMATED BLOOD LOSS: 25 mL COMPLICATIONS: None SPECIMENS: None DRAINS: None PREOPERATIVE ANTIBIOTICS: Ancef 1 grams IMPLANTS: 1. Tornier 25mm standard base plate with a 30 mm x 9.5 mm central screw 2. 36mm standard glenosphere 3. 3B humeral stem 4. High eccentric +0 humeral tray 5. 36mm +6 polyethylene INDICATIONS: The patient is a 74-year-old with a longstanding history of severe, unrelenting right shoulder pain secondary to end-stage glenohumeral joint osteoarthritis. Despite appropriate nonoperative management, including activity modification, anti-inflammatories, [id number] pain medication, physical therapy, and injections they continue to have pain and disability. Operative intervention was offered. The risks, benefits and expected outcomes were discussed in detail. These included but were not limited to: Infection, bleeding, injury to blood vessel or nerve, venous thromboembolism. All questions were answered to their satisfaction. Use of an environmental engineering assistant was necessary throughout the case for patient positioning and safety, soft tissue retraction, and closure. PROCEDURE: General anesthesia was administered. The patient was placed in the lazy beach chair position on the operating room table. The right upper extremity was prepped and draped in the usual sterile fashion. A standard deltopectoral incision was made. Subcutaneous dissection was taken with electrocautery to the deltopectoral interval. The cephalic vein was ligated, lateral branches were cauterized. The vein was taken medially with the pectoralis. We bluntly entered the deltopectoral interval. We freed up the deltoid. The upper 1/3 of the insertion of the pectoralis was divided with cautery. The static retractor was placed. The clavipectoral fascia and CA ligament were divided. The circumflex vessels were controlled with electrocautery. The biceps was dissected out of the bicipital groove, was tagged with a #2 FiberWire suture and divided proximally. Two fiberWire sutures were placed in the subscapularis. The subscap was subperiosteally elevated off of the lesser tuberosity. The humeral head was delivered into the wound. The intramedullary humeral cutting guide was placed. We made the cut at the anatomic neck, in 30? of retroversion. Humeral sounds were used to assess the diameter of the canal. The broach was placed and had good rotational stability. The calcar reamer was used and the protective base plate cover was placed. Attention was then turned to the glenoid. Hohmann retractors were placed posteriorly. The labrum and biceps stump were sharply debrided. The origin of the inferior glenohumeral ligaments were subperiosteally released off of the glenoid. The drill guide was placed. The guide pin was placed in 0? of cephalic tilt. The reamer was used to bleeding bone. The central drill was used x2. The tap was used. The standard base plate was placed. This had excellent purchase. Locking screws x 2 were placed. The glenosphere was placed, the set screw was tightened. Attention then returned to the humerus. We placed a high eccentric standard base plate and standard poly. We reduced the shoulder and took it through a range of motion. It was found to be stable with appropriate soft tissue tension. Trial humeral components were removed. The biceps was tenodesed in the bicipital groove with drill holes and our previously placed FiberWire suture. We placed #2 FiberWire sutures in the lesser tuberosity for subsequent subscap repair. We assembled the humeral component on the back table. We placed it in the center of our subscapularis repair sutures and tapped it down to our humeral cut. This had excellent purchase. The shoulder was reduced and again was found to be stable with appropriate soft tissue tension. We did a 3 min dilute Betadine solution soak. We irrigated the wound with 3 L of normal saline via pulse lavage. We repaired the subscapularis to the lesser tuberosity with our previously placed FiberWire sutures. The deltopectoral interval was loosely reapproximated with an 0 Vicryl in an interrupted [id number] fashion. Subcutaneous tissues were closed with the 2-0 Vicryl and a running 3-0 Monocryl suture. The skin was sealed with glue. A dry dressing and sling were applied. Sponge and needle counts were correct x2. The patient tolerated the procedure well, there were no apparent complications. They were awakened and extubated in the operating room, taken to the postanesthesia care unit in satisfactory condition. PLAN: The patient will be mobilized with physical therapy. The sling will be used for 6 weeks postoperatively. Active range of motion in forward flexion and abduction as tolerates. No external rotation greater than 0? for 6 weeks postoperatively. They will be discharged to home once medically appropriate.
--- NOTE | 2024-06-24 12:48 | W.ANESCHARGE ---
Anesthesia Charges Start Date/Time Anesthesia Start Date: 06/24/24 Anesthesia Start Time: 10:31 Stop Date/Time Anesthesia Stop Date: 06/24/24 Anesthesia Stop Time: 12:53 Summary Extremes of Age - Over 70 or under 1: ENGINEER AUTOMATED EQUIPMENT
--- NOTE | 2024-06-24 13:18 | SUR.PHASEI ---
patient met discharge criteria per anesthesia
[2024-06-24] MEDS: LACTATED RINGERS 1000 ML 1,000 ML 75 ML IV (13:48)
[2024-06-24] MEDS: CEFAZOLIN 1 GM in 0.9 % SODIUM CHLORIDE Mini-bag 100 ML IVPB ×2 (15:00→22:29)
--- NOTE | 2024-06-24 17:03 | PM.IMCN1 ---
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 There have been no perioperative complications. I have reviewed the preop H&P done on 06/11/[address] Nj I have updated and reviewed the active medical problems, past medical history, past surgical history, social history, allergies and medications in our electronic EMR. This includes a cross reference to care everywhere in [facility] and with [facility] databases. PHYSICAL EXAM: CODE STATUS: FULL CODE CONSTITUTIONAL: groggy; on 1L [place] oxygen; alert when awakened. VITAL SIGNS: see record. HEENT: Normocephalic, atraumatic. PERRL, EOMI, conjunctivae pink, no scleral icterus. Ears and nose externally normal. Pharynx normal. NECK: No JVD. No carotid bruit, no thyromegaly, no adenopathy. CHEST: Clear to auscultation bilaterally HEART: S1 and S2 normal. ABDOMEN: Flat, soft, nontender. Normal bowel sounds. Moderately obese. EXTREMITIES: No edema. MUSCULOSKELETAL: Right shoulder surgical dressing in place. NEURO: Cranial nerves intact. Mentation normal. Normal affect. SKIN: No rashes, petechiae, concerning changes PSYCHIATRIC: Mentation normal. 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 ?N02.2 - Recurrent and persistent hematuria with diffuse membranous glomerulonephritis (ICD-10) Essential hypertension ?I10 - Essential (primary) hypertension (ICD-10) Chronic kidney disease, stage 4 (severe) ?N18.4 - Chronic kidney disease, stage 4 (severe) (ICD-10) Chronic nephritic syndrome, minor glomerular abnormality (~2020) ?N03.0 - Chronic nephritic syndrome with minor glomerular abnormality (ICD-10) Back pain ?M54.9 - Dorsalgia, unspecified (ICD-10) GERD (gastroesophageal reflux disease) ?K21.9 - Gastro-esophageal reflux disease without esophagitis (ICD-10) Surgical History (Updated 06/24/24 @ 17:12 by Madelyn Cisneros MD) History of reverse total replacement of right shoulder joint ?Z96.611 - Presence of right artificial shoulder joint (ICD-10) History of total left hip arthroplasty (05/03/23) ?Z96.642 - Presence of left artificial hip joint (ICD-10) Status post right hip replacement (10/17/22) ?Z96.641 - Presence of right artificial hip joint (ICD-10) Hx of tonsillectomy ?Z90.89 - Acquired absence of other organs (ICD-10) H/O eye surgery ?Z98.890 - Other specified postprocedural states (ICD-10) Family History Other Diabetes Prostate cancer Social History Narrative: Patient was living in [place] and this summer moved to [place]. She lives in apartment there. She has elevators. She lives alone. Her son is going to come and stay with her for a week after surgery. She has a daughter who lives nearby. Her son, Rylan Mcknight, is healthcare power of engineering equipment operator. Code status is full. She does not smoke or drink alcohol. Problems where you live: no known problems Highest level of school completed/degree received: decline to answer Smoking Status: Never smoker Do you use any of these nicotine containing products: None How often do you have a drink containing alcohol: never AUDIT-C Alcohol total score: 0 Non-prescribed substance use: denies use Caffeine: No Meds Home Medications and Allergies Home Medications ?Medication ?Instructions ?Recorded ?Confirmed ?Type calcium carbonate (Calcium 600) 600 mg PO DAILY 08/28/22 05/05/24 History carvedilol 6.25 mg tablet 6.25 mg PO BID 08/28/22 06/24/24 History cetirizine 10 mg tablet (Zyrtec) 10 mg PO DAILY PRN 08/28/22 06/24/24 History gabapentin 300 mg capsule 300 mg PO HS 08/28/22 06/24/24 History hydrochlorothiazide 25 mg tablet 25 mg PO DAILY 08/28/22 06/24/24 History lisinopril 20 mg tablet 20 mg PO BID 08/28/22 06/24/24 History simvastatin 20 mg tablet 20 mg PO HS 08/28/22 06/24/24 History famotidine 20 mg tablet (Acid 20 mg PO BID PRN 05/03/23 06/24/24 History Controller) Allergies Allergy/AdvReac Type Severity Reaction Status Date / Time No Known Drug Allergies Allergy Verified 06/24/24 08:14 Exam Const: Vital Signs, click to edit/add: Vital Signs - 24 hr 06/24/24 08:35 06/24/24 10:00 06/24/24 10:10 Temperature 97.8 F Pulse Rate 64 64 63 Pulse Rate [Right Pulse Oximeter] Respiratory Rate 20 20 20 Blood Pressure 155/67 H 160/61 H 111/55 L Pulse Oximetry 97 97 95 Oxygen Delivery Me thod Room Air Nasal Cannula Nasal Cannula Oxygen Flow Rate 3 3 06/24/24 12:31 06/24/24 12:35 06/24/24 12:40 Temperature 97.1 F L 97.1 F L 97.1 F L Pulse Rate 68 57 L 57 L Pulse Rate [Right Pulse Oximeter] Respiratory Rate 20 19 20 Blood Pressure 201/85 H 172/69 H 156/65 H Pulse Oximetry 96 96 96 Oxygen Delivery Me thod OxyMask OxyMask OxyMask Oxygen Flow Rate 10 10 10 06/24/24 12:45 06/24/24 12:50 06/24/24 12:55 Temperature 97.1 F L 97.1 F L 97.1 F L Pulse Rate 57 L 60 57 L Pulse Rate [Right Pulse Oximeter] Respiratory Rate 17 20 16 Blood Pressure 150/71 H 151/65 H 140/64 H Pulse Oximetry 96 96 91 Oxygen Delivery Me thod OxyMask OxyMask Room Air Oxygen Flow Rate 10 10 06/24/24 13:00 06/24/24 13:05 06/24/24 13:14 Temperature 97.1 F L 97.5 F L 96.9 F L Pulse Rate 55 L 56 L 57 L Pulse Rate [Right Pulse Oximeter] Respiratory Rate 16 16 16 Blood Pressure 144/65 H 148/67 H 151/62 H Pulse Oximetry 91 93 93 Oxygen Delivery Me thod Room Air Room Air Nasal Cannula Oxygen Flow Rate 2 06/24/24 13:30 06/24/24 13:45 06/24/24 14:15 Temperature 97.2 F L 97.1 F L 97 F L Pulse Rate 57 L 59 L 59 L Pulse Rate [Right Pulse Oximeter] Respiratory Rate 20 18 16 Blood Pressure 140/63 H 147/61 H 154/60 H Pulse Oximetry 92 92 91 Oxygen Delivery Me thod Room Air Room Air Room Air Oxygen Flow Rate 1 0.5 0.5 06/24/24 14:46 06/24/24 15:00 06/24/24 15:00 Temperature 97 F L Pulse Rate 59 L Pulse Rate [Right Pulse Oximeter] 63 Respiratory Rate 18 14 14 Blood Pressure 139/53 L Pulse Oximetry 91 92 Oxygen Delivery Me thod Room Air Nasal Cannula Oxygen Flow Rate 0.5 0.5 06/24/24 15:16 06/24/24 16:16 Temperature 97.5 F L 97.7 F Pulse Rate 63 59 L Pulse Rate [Right Pulse Oximeter] Respiratory Rate 14 16 Blood Pressure 116/59 L 121/49 L Pulse Oximetry 92 91 Oxygen Delivery Me thod Room Air Room Air Oxygen Flow Rate 0.5 0.5 Assessment and Plan Assessment and plan (1) History of reverse total replacement of right shoulder joint: Problem comment: -happy to follow the patient through to discharge. We expect a routine postoperative course. We will watch her blood pressure and monitor kidney function given her medical history. 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 Has been off of the steroids for the last 3-4 months due to improve kidney function. Status: Acute (3) Chronic kidney disease, stage 4 (severe): Problem comment: -preop creatinine 1.98, potassium 4.4 Status: Acute (4) Essential hypertension: Problem comment: Hold lisinopril and hydrochlorothiazide. Continue carvedilol. Resume lisinopril and hydrochlorothiazide at discharge. Status: Acute
--- NOTE | 2024-06-24 18:52 | PC.NURSE ---
End of Shift [id number]: Patient pleasant and cooperative, alert and oriented. Patient vitally stable, lungs clear, BS WNL, IV running LR at 75. Patient rates no pain, only scheduled tylenol given. Patient is still numb in the arm and can not move fingers. Right shoulder dressing C/D/I. patient ambulated to the toilet only urinating about 100 ml. Patient is now up in chair for dinner. Active ice placed on right shoulder.
[2024-06-24] MEDS: HYDROmorphone 0.5 mg/0.5 ml inj IVP (20:29)
[2024-06-24] MEDS: SIMVASTATIN 20 MG TABLET PO (20:30)
[2024-06-24] MEDS: GABAPENTIN 300 MG CAPSULE PO (20:30)
[2024-06-24] MEDS: SENNOSIDES 1 TAB TABLET 2 TAB PO (20:30)
[2024-06-24] MEDS: carvediloL 6.25 MG TABLET PO (20:32)
[2024-06-25] MEDS: OXYCODONE 5 MG TABLET PO ×2 (00:01→06:04)
[2024-06-25] MEDS: ONDANSETRON 2 MG/ML inj 4 MG IVP ×2 (00:03→05:27)
[2024-06-25] MEDS: ACETAMINOPHEN 500 MG TABLET 1000 MG PO ×2 (02:46→09:43)
--- NOTE | 2024-06-25 05:57 | PC.NURSE ---
End of shift report [id number]: Pleasant and cooperative with cares. Alert and oriented x4. Pain to right shoulder well managed with current regimen. Dressing to anterior shoulder clean, dry and intact. Patient tolerating active ice to op site. Right arm in sling. CMS intact, non pitting edema to right hand. CMS intact, patient able to wiggle fingers. Block continues to wear off through the shift and patient reporting she can feel insurance underwriter sales touching hand, shoulder, outer right arm. Transfers and ambulates with SBA, did need minimal assist with getting underwear up. Patient able to feed self without issues. Bowel sounds active x 4, denies any nausea or vomiting.
[2024-06-25 07:00] VITALS: BP 120/50; PULSE 76; RESP 16; TEMP 36.5; O2SAT 90
[2024-06-25 07:09] LABS: Hematocrit 31.7 % (33.0-51.0); Mean Corpuscular HGB Conc 32 gm/dL (32-36); Mean Corpuscular Hemoglobin 30 pg (26-34); Mean Corpuscular Volume 95 fL (80-100); Platelet Count* 311 K/uL (140-440); Red Blood Count 3.33 m/uL (4.00-5.20); White Blood Count* 14.49 K/uL (4.50-11.00)
[2024-06-25 07:13] LABS: Slide Review Reflex No
[2024-06-25 07:21] LABS: Potassium* 4.8 mmol/L (3.6-5.1); Sodium* 135 mmol/L (135-149)
[2024-06-25 07:24] LABS: Creatinine* 2.1 mg/dL (0.5-1.5); Estimated Glomerular Filt Rate 24 ml/min
[2024-06-25 07:25] LABS: Blood Urea Nitrogen* 38 mg/dL (7-30)
[2024-06-25] MEDS: SENNOSIDES 1 TAB TABLET 2 TAB PO (08:25)
[2024-06-25] MEDS: carvediloL 6.25 MG TABLET PO (08:39)
--- NOTE | 2024-06-25 09:31 | PM.ORPN ---
Subjective Subjective Time Seen by Provider: 09:15 Date Seen: 06/25/24 Principal diagnosis: Day 1 s/p Right UE reverse shoulder arthroplasty, biceps tenodesis Interval history: Alina is doing well and resting comfortably in her recliner. She is currently working on her therapy exercises. Pain is well managed with Oxycodone, Tylenol and icing. Patient reports nausea that responds well to Zofran; requesting script for Zofran upon discharge. Denies: chest pain, SOB. Admits to tingling in right hand/digits that is improving as her block continues to wear off. Outpatient PT scheduled to begin 07/06 at [facility] in [place]. No acute concerns. Ortho Exam Narrative Exam Narrative: EXAM: Incision/Dressing: Dressing appears clean and dry. No drainage present. Mepilex intact. Right shoulder appears moderately swollen but supple with no obvious erythema, fluctuance or excessive warmth. No ecchymosis. CMS intact distally with 2+ Radial pulse. Sensation intact distally. Constitutional: Patient is alert and oriented x3. Patient is in no acute distress and converses without labored breathing. Patient is able to make decisions and demonstrates good insight. Patient is pleasant and cooperative. Affect is full range and appropriate for the circumstances. Const Vital Signs, click to edit/add: Vital Signs - 24 hr 06/24/24 10:00 06/24/24 10:10 06/24/24 12:31 Temperature 97.1 F L Pulse Rate 64 63 68 Pulse Rate [Right Pulse Oximeter] Respiratory Rate 20 20 20 Blood Pressure 160/61 H 111/55 L 201/85 H Blood Pressure [Left Arm] Pulse Oximetry 97 95 96 Oxygen Delivery Method Nasal Cannula Nasal Cannula OxyMask Oxygen Flow Rate 3 3 10 06/24/24 12:35 06/24/24 12:40 06/24/24 12:45 Temperature 97.1 F L 97.1 F L 97.1 F L Pulse Rate 57 L 57 L 57 L Pulse Rate [Right Pulse Oximeter] Respiratory Rate 19 20 17 Blood Pressure 172/69 H 156/65 H 150/71 H Blood Pressure [Left Arm] Pulse Oximetry 96 96 96 Oxygen Delivery Method OxyMask OxyMask OxyMask Oxygen Flow Rate 10 10 10 06/24/24 12:50 06/24/24 12:55 06/24/24 13:00 Temperature 97.1 F L 97.1 F L 97.1 F L Pulse Rate 60 57 L 55 L Pulse Rate [Right Pulse Oximeter] Respiratory Rate 20 16 16 Blood Pressure 151/65 H 140/64 H 144/65 H Blood Pressure [Left Arm] Pulse Oximetry 96 91 91 Oxygen Delivery Method OxyMask Room Air Room Air Oxygen Flow Rate 10 06/24/24 13:05 06/24/24 13:14 06/24/24 13:30 Temperature 97.5 F L 96.9 F L 97.2 F L Pulse Rate 56 L 57 L 57 L Pulse Rate [Right Pulse Oximeter] Respiratory Rate 16 16 20 Blood Pressure 148/67 H 151/62 H 140/63 H Blood Pressure [Left Arm] Pulse Oximetry 93 93 92 Oxygen Delivery Method Room Air Nasal Cannula Room Air Oxygen Flow Rate 2 1 06/24/24 13:45 06/24/24 14:15 06/24/24 14:46 Temperature 97.1 F L 97 F L 97 F L Pulse Rate 59 L 59 L 59 L Pulse Rate [Right Pulse Oximeter] Respiratory Rate 18 16 18 Blood Pressure 147/61 H 154/60 H 139/53 L Blood Pressure [Left Arm] Pulse Oximetry 92 91 91 Oxygen Delivery Method Room Air Room Air Room Air Oxygen Flow Rate 0.5 0.5 0.5 06/24/24 15:00 06/24/24 15:00 06/24/24 15:16 Temperature 97.5 F L Pulse Rate 63 Pulse Rate [Right Pulse Oximeter] 63 Respiratory Rate 14 14 14 Blood Pressure 116/59 L Blood Pressure [Left Arm] Pulse Oximetry 92 92 Oxygen Delivery Method Nasal Cannula Room Air Oxygen Flow Rate 0.5 0.5 06/24/24 16:16 06/24/24 17:16 06/24/24 18:16 Temperature 97.7 F 98 F 97.3 F L Pulse Rate 59 L 65 64 Pulse Rate [Right Pulse Oximeter] Respiratory Rate 16 16 16 Blood Pressure 121/49 L 119/54 L 135/60 Blood Pressure [Left Arm] Pulse Oximetry 91 90 90 Oxygen Delivery Method Room Air Room Air Room Air Oxygen Flow Rate 0.5 06/24/24 19:15 06/24/24 23:00 06/24/24 23:00 Temperature 96.9 F L Pulse Rate 61 Pulse Rate [Right Pulse Oximeter] Respiratory Rate 18 18 18 Blood Pressure 137/61 Blood Pressure [Left Arm] Pulse Oximetry 92 93 Oxygen Delivery Method Room Air Room Air Oxygen Flow Rate 06/24/24 23:00 Temperature 97.1 F L Pulse Rate Pulse Rate [Right Pulse Oximeter] 75 Respiratory Rate 18 Blood Pressure Blood Pressure [Left Arm] 138/72 Pulse Oximetry 93 Oxygen Delivery Method Room Air Oxygen Flow Rate Assessment and Plan Assessment and plan (1) History of reverse total replacement of right shoulder joint: Problem details: DOS: 06/24/24, Dr. Muñoz. Status: Acute Assessment and Plan: Sling use x 6 weeks postoperative. May remove to work on elbow/hand/wrist ROM. No external rotation of the right shoulder past 0? x 6 weeks. Forward flexion and abduction of the right shoulder is allowed as tolerated. For pain management, Oxycodone and acetaminophen PRN in addition to frequent icing. Minimize use of narcotics. Will send a script for Zofran for nausea. Dressing is waterproof. May shower. Surgical glue covers the wound. Follow-up with PA-Kandace in 7-10 days. Follow-up with Dr. Muñoz at 6 weeks postoperative. Phone Orthopedics with any questions or concerns.
--- NOTE | 2024-06-25 11:26 | PC.NURSE ---
DC: Pt alert, oriented and vitally stable. Pt rates pain 1/10, able to move fingers, though states arm still feels numb. Ice pack to op site as tolerated. Dressing C/D/I. Pt moves via SBA, tolerates well. DC information given to pt and daughter, topics including medications, activity and follow up. Pt DC home with daughter at 1115.
== END 2024-06-25 11:15 | disposition home or self-care (01) ==
LOC: OR 08:01 → MEDSURG 08:02
PROVIDERS: PCP Family Medicine; Visit Provider Orthopaedic Surgery
PROC: 0RRJ0JZ Replacement of Right Shoulder Joint with Synthetic Substitute, Open Approach (ICD-10-PCS; CPT 23472; principal; 2024-06-24 10:00)
DX: M19.011 Primary osteoarthritis, right shoulder (principal); G89.18 Other acute postprocedural pain; I12.9 Hypertensive chronic kidney disease with stage 1 through stage 4 chronic kidney disease, or unspecified chronic kidney disease; N18.4 Chronic kidney disease, stage 4 (severe); Z79.52 Long term (current) use of systemic steroids; D63.1 Anemia in chronic kidney disease; K21.9 Gastro-esophageal reflux disease without esophagitis
CPT/HCPCS: 23472; 23430; 01638; 36415; 64415; 73030; 76942; 82565; 84132; 84295; 84520; 85027; 97110; 97165; 97535; 99100; A9270; C1713; C1776; J0330; J0690; J1100; J1171; J1630; J2250; J2371; J2405; J2704; J2795; J3010; J3490; J7120